=== PATIENT | female | born 1945 | race Caucasian/White ===

== ENCOUNTER 2019-11-13 20:32 | Inpatient (IN) | payer MEDICARE, OTHER ==
[~2019-11-13] VITALS: Ht 157.5 cm; Wt 68.3 kg
[~2019-11-13 20:32] MED LIST: ACEBUTCAFT PO; ALPRAZOLAM; AMOX500; BACL10 PO; Bupropion HCl150 M2 PO; CITA20; CITA20 PO; DIPATR PO; DONE10 PO; ESTROGEN; HYDACE5 PO; HYDROCODONE; LEVFLO500 PO; MELA3 PO; ONDA4 PO; Omeprazole20 M1 PO; PANT40 PO; PROM25 PO; PROP80ER PO; SULI150
[2019-11-13 21:27] LABS: BASOPHILS ABSOLUTE AUTO 0.04 K/mm3 (0.00-0.23); BASOPHILS PERCENT AUTO 0 % (0-2); EOSINOPHILS ABSOLUTE AUTO 0.01 K/mm3 (0.00-0.68); EOSINOPHILS PERCENT AUTO 0 % (0-6); Hematocrit 46.6 % (33.0-51.0); Hemoglobin 14.8 g/dL (11.5-16.0); IMMATURE GRAN ABSOLUTE AUTO 0.15 K/mm3 (0.00-0.10); IMMATURE GRAN PERCENT AUTO 1 % (0-1); LYMPHOCYTES ABSOLUTE AUTO 0.95 K/mm3 (0.84-5.20); LYMPHOCYTES PERCENT AUTO 5 % (21-46); MONOCYTES ABSOLUTE AUTO 1.56 K/mm3 (0.16-1.47); MONOCYTES PERCENT AUTO 9 % (4-13); Mean Corpuscular HGB 31.9 pg (26.0-34.0); Mean Corpuscular HGB Conc 31.8 g/dL (31.5-36.5); Mean Corpuscular Volume 100 fL (80-100); Mean Platelet Volume 11.1 fL (9.1-12.4); NEUTROPHILS ABSOLUTE AUTO 15.29 K/mm3 (1.96-9.15); NEUTROPHILS PERCENT AUTO 85 % (41-73); Platelet Count 268 K/mm3 (150-400); RDW Coefficient Variation 13.9 % (11.7-14.2); RDW Standard Deviation 51.8 fL (35.1-46.3); Red Blood Cell Count 4.64 M/mm3 (3.80-5.20)
[2019-11-13 21:47] LABS: Alanine Aminotransfer (ALT/SGP 21 U/L (12-78); Albumin, Blood 3.8 g/dL (3.4-5.0); Alk Phos 103 U/L (50-136); Anion Gap 9 mmol/L (6-16); Aspartate Aminotrans (AST/SGOT 18 U/L (12-37); Bilirubin, Total 0.5 mg/dL (0.1-1.0); Blood Urea Nitrogen 10 mg/dL (8-24); Bun/Creatinine Ratio 13.3 (12.0-20.0); CO2, Blood 26 mmol/L (21-32); Chloride, Blood 103 mmol/L (98-108); Creatinine, Blood 0.75 mg/dL (0.40-1.00); Ethanol (Alcohol), Blood, Med <3 mg/dL; Glomerular Filtration Rate >60 (60-); Glucose, Blood 253 mg/dL (70-99); Magnesium, Blood 1.9 mg/dL (1.6-2.4); Potassium, Blood 3.4 mmol/L (3.5-5.5); Sodium, Blood 138 mmol/L (136-145); Total Protein, Blood 7.8 g/dL (6.4-8.2); Troponin I 0.439 ng/mL (0.000-0.040)
[2019-11-13 22:03] LABS: Source, Urine Clean Catch
[2019-11-13 22:05] LABS: Bilirubin, Urine Neg (Neg); Blood, Urine 1+ (Neg); Glucose Qualitative, Urine 4+ (Neg); Ketones, Urine 3+ (Neg); Leukocyte Esterase, Urine 1+ (Neg); Nitrite, Urine Neg (Neg); Protein, Urine 1+ (Neg); Specific Gravity, Urine 1.015 (1.003-1.022); Urobilinogen, Urine NORM (Normal)
[2019-11-13 22:16] LABS: Amorphous Light (0-Heavy); Appearance, Urine Hazy (Clear); Bacteria Mod /hpf; Color, Urine Yellow (P-Yellow); Red Blood Cells, Urine 0-2 /hpf (0-2); Squamous Epithelial Cells Few /hpf (Few)
[2019-11-13] MEDS ORDERED: PARO30 PO (22:58)
[2019-11-13 23:48] LABS: International Normalized Ratio 1.05; Prothrombin Time Results 11.2 Sec (9.7-11.5)
--- NOTE | 2019-11-14 02:30 | NUR ---
ADMIT NOTE PATIENT ADMITTED EARLIER THIS SHIFT AND WAS SETTLED IN AND ORIENTED TO THE ROOM, CALL LIGHT, AND UNIT. PATIENT VERY ANXIOUS AND NAUSOUS UPON ADMIT TO THE FLOOR, PATIENT MEDICATED FOR BOTH PER EMAR. HOWEVER, PATIENT DENIES ANY CHEST PAIN BUT REPORTS FEELING GENERALLY UNCOMFORTABLE OVERALL. WILL CONTINUE TO MONITOR PATIENT.
[2019-11-14 06:17] LABS: BASOPHILS ABSOLUTE AUTO 0.03 K/mm3 (0.00-0.23); BASOPHILS PERCENT AUTO 0 % (0-2); EOSINOPHILS PERCENT AUTO 0 % (0-6); Hematocrit 44.8 % (33.0-51.0); Hemoglobin 14.8 g/dL (11.5-16.0); IMMATURE GRAN ABSOLUTE AUTO 0.05 K/mm3 (0.00-0.10); IMMATURE GRAN PERCENT AUTO 0 % (0-1); LYMPHOCYTES ABSOLUTE AUTO 0.83 K/mm3 (0.84-5.20); LYMPHOCYTES PERCENT AUTO 6 % (21-46); MONOCYTES ABSOLUTE AUTO 0.54 K/mm3 (0.16-1.47); MONOCYTES PERCENT AUTO 4 % (4-13); Mean Corpuscular HGB 32.4 pg (26.0-34.0); Mean Corpuscular Volume 98 fL (80-100); Mean Platelet Volume 11.4 fL (9.1-12.4); NEUTROPHILS ABSOLUTE AUTO 13.17 K/mm3 (1.96-9.15); NEUTROPHILS PERCENT AUTO 90 % (41-73); Platelet Count 252 K/mm3 (150-400); RDW Coefficient Variation 13.7 % (11.7-14.2); RDW Standard Deviation 49.7 fL (35.1-46.3); Red Blood Cell Count 4.57 M/mm3 (3.80-5.20); White Blood Cell Count 14.62 K/mm3 (4.00-11.30)
--- NOTE | 2019-11-14 06:42 | NUR ---
SHIFT SUMMARY PATIENT CONTINUES TO BE VERY ANXIOUS AND CONTINUES TO FEEL "UNCOMFORTABLE." PATIENT UNABLE TO EXPLAIN FEELING FURTHER.STATES SHE FEELS VERY NAUSOUS, MEDICATED FOR NAUSEA PER EMAR. PATIENT CONTINUES TO DENY ANY CHEST PAIN. DR AGUAYO UPDATED OF PATIENT'S CURRENT CONDITION, ORDERS RECIEVED. HEPARIN GTT RUNNING PER ORDERS. AM EKG DONE PER ORDERS. PATIENT CURRENTLY RESTING IN BED AND APPEARS TO BE MORE COMFORTABLE THAN BEFORE. WILL CONTINUE TO MONITOR PATIENT AND GIVE BEDSIDE REPORT TO ONCOMING RN.
[2019-11-14 07:15] LABS: Anion Gap 7 mmol/L (6-16); Blood Urea Nitrogen 8 mg/dL (8-24); Bun/Creatinine Ratio 11.2 (12.0-20.0); CO2, Blood 26 mmol/L (21-32); Calcium, Blood 8.4 mg/dL (8.5-10.1); Chloride, Blood 104 mmol/L (98-108); Creatinine, Blood 0.72 mg/dL (0.40-1.00); Glomerular Filtration Rate >60 (60-); Glucose, Blood 151 mg/dL (70-99); Potassium, Blood 4.6 mmol/L (3.5-5.5); Sodium, Blood 137 mmol/L (136-145)
--- NOTE | 2019-11-14 11:10 | NUR ---
AM...NOTE. PT IS LIGHTLY SLEEPING, AROUSABLE AND DENIES SOB OR ANY PAIN AT THIS TIME. HEPARIN GTT INITIALLY 13 UNITS AND PER ORDER INC TO 14U/KG AT 15.[address] BETANCOURT IN TO SEE AND ASSESS PT AND WILL EVALUATE ECHO AND DETERMINE NEED FOR FOLLOW UP CATH, ETC. PT WAS DOWN FOR ABD XRAY PER BED AND BACK W/O DISTRESS. PT HAS MILD ELEVATED TEMP, EXTRA BLANKETS AND ROOM TEMP ADJUSTED AND WILL RE-EVALUATE. UP TO MEGHA WITH MILD SOB, NO CHEST PAIN.
--- NOTE | 2019-11-14 14:24 | NUR ---
PT ECHO HAS BEEN COMPLETED AND READ. PT REMAINS W/O C.P. OR SOB AND WANTS TO "GO HOME". IV UNCHANGED PER HEPARIN GTT AT 14UNITS AND NS TKO.
--- NOTE | 2019-11-14 18:05 | NUR ---
ECHOCARDIOGRAM COMPLETE
--- NOTE | 2019-11-14 18:14 | NUR ---
HEPARIN GTT REMAINS STABLE AT 14UNITS PER ORDER. PT HAS BEEN DROWSY AND SLEEPING MOST OF THE SHIFT. THERE HAS BEEN NO C/O OR NOTED CHEST PAIN DURING THIS SHIFT. PT REMAINS NSR. NS TKO. PT HAS BEEN UP TO VOID. WILL REPORT NPO STATUS AFTER MIDNIGHT.
[2019-11-15 05:20] LABS: BASOPHILS ABSOLUTE AUTO 0.03 K/mm3 (0.00-0.23); BASOPHILS PERCENT AUTO 0 % (0-2); EOSINOPHILS PERCENT AUTO 0 % (0-6); Hematocrit 44.8 % (33.0-51.0); Hemoglobin 14.8 g/dL (11.5-16.0); IMMATURE GRAN ABSOLUTE AUTO 0.04 K/mm3 (0.00-0.10); IMMATURE GRAN PERCENT AUTO 0 % (0-1); LYMPHOCYTES ABSOLUTE AUTO 2.28 K/mm3 (0.84-5.20); LYMPHOCYTES PERCENT AUTO 22 % (21-46); MONOCYTES ABSOLUTE AUTO 1.24 K/mm3 (0.16-1.47); MONOCYTES PERCENT AUTO 12 % (4-13); Mean Corpuscular HGB 32.4 pg (26.0-34.0); Mean Corpuscular Volume 98 fL (80-100); Mean Platelet Volume 11.2 fL (9.1-12.4); NEUTROPHILS ABSOLUTE AUTO 6.95 K/mm3 (1.96-9.15); NEUTROPHILS PERCENT AUTO 66 % (41-73); Platelet Count 246 K/mm3 (150-400); RDW Standard Deviation 50.7 fL (35.1-46.3); Red Blood Cell Count 4.57 M/mm3 (3.80-5.20); White Blood Cell Count 10.54 K/mm3 (4.00-11.30)
[2019-11-15 05:45] LABS: Alanine Aminotransfer (ALT/SGP 19 U/L (12-78); Albumin, Blood 3.3 g/dL (3.4-5.0); Albumin/Globulin Ratio 0.8 (0.8-1.8); Alk Phos 88 U/L (50-136); Anion Gap 7 mmol/L (6-16); Aspartate Aminotrans (AST/SGOT 22 U/L (12-37); Bilirubin, Total 0.6 mg/dL (0.1-1.0); Blood Urea Nitrogen 9 mg/dL (8-24); Bun/Creatinine Ratio 9.4 (12.0-20.0); CO2, Blood 27 mmol/L (21-32); Calcium, Blood 8.6 mg/dL (8.5-10.1); Chloride, Blood 106 mmol/L (98-108); Creatinine, Blood 0.96 mg/dL (0.40-1.00); Globulin, Blood 3.9 g/dL (2.2-4.0); Glomerular Filtration Rate >60 (60-); Glucose, Blood 124 mg/dL (70-99); Potassium, Blood 3.3 mmol/L (3.5-5.5); Sodium, Blood 140 mmol/L (136-145); Total Protein, Blood 7.2 g/dL (6.4-8.2)
--- NOTE | 2019-11-15 07:11 | NUR ---
SHIFT SUMMARY PATIENT VERY SLEEPY FOR MOST OF THE NIGHT, HOWEVER PATIENT MORE AWAKE AND AND NAPPED ON AND OFF THROUGHOUT THE LAST PART OF THE NIGHT. PATIENT ANXIOUS WHEN AWAKE. PATIENT EDUCATED ON POSSIBLE ANGIO TODAY MULTIPLE TIMES BUT APPEARS VERY FORGETFUL. PATIENT UNSURE IF SHE WANTS TO HAVE THE PROCEDURE DONE TODAY. PATIENT HAS BEEN NPO SINCE 0000. HEPARIN GTT RUNNING PER ORDERS. BEDSIDE REPORT GIVEN TO GABBIE WALDEN.
--- NOTE | 2019-11-15 07:14 | NUR ---
ASSUMED PATIENT CARE. PATIENT RESTING COMFORTABLY IN BED, EQUAL BILATERAL CHEST RISE WITH BREATH. NO SIGNS OF ACUTE DISTRESS, WCTM.
--- NOTE | 2019-11-15 12:58 | NUR ---
REPORT GIVEN TO JOHANNA WALDEN IN PCU. RELINQUISHED PATIENT CARE.
--- NOTE | 2019-11-15 14:22 | NUR ---
HEPARIN GTT TITRATED PER PHARMACY. PTT= 42.8. GTT INCREASED BY 2 UNITS/KG/HR & 2500 UNIT BOLUS GIVEN. CHANGES VERIFIED W/ SECOND RNRADHA. HEPARIN GTT NOW INFUSING @ 17 UNITS/KG/HR. WILL CONTINUE TO MONITOR.
--- NOTE | 2019-11-15 14:33 | NUR ---
PT GAVE PERMISSION FOR CARE ON 11/15/19 FOR TOMORROW 11/16/19.
--- NOTE | 2019-11-15 17:36 | NUR ---
SHIFT SUMMARY ASSUMED PT CARE AROUND 1258 FROM IRAM ALBERTS. NO ACUTE CHANGES THROUGHOUT SHIFT. VSS. PT W/ LOW GRADE FEVER EARLIER TODAY; MOST RECENT TEMP 98.8. PLAN TO TREAT PT FOR PNA FIRST SINCE PT FEBRILE TODAY; ANGIOGRAM SCHEDULED TENTATIVELY FOR TOMORROW. HEPARIN GTT CONTINUES TO INFUSE, CURRENLTY RUNNING @ 17 UNITS/KG/HR. PT DENIED ANY C/O CHEST PAIN/PRESSURE OR SOB. PT ALERT & ORIENTED, BUT FREQUENTLY FORGETFUL; BED ALARM IN PLACE FOR PT SAFETY. PT RESTING COMFORTBALY IN BED AT THIS TIME. BED LOCKED & IN LOWEST POSITION, CALL JADE W/ IN REACH. WILL CONTINUE TO MONITOR UNTIL END OF SHIFT.
[2019-11-16 04:57] LABS: BASOPHILS ABSOLUTE AUTO 0.04 K/mm3 (0.00-0.23); BASOPHILS PERCENT AUTO 1 % (0-2); EOSINOPHILS ABSOLUTE AUTO 0.06 K/mm3 (0.00-0.68); EOSINOPHILS PERCENT AUTO 1 % (0-6); Hematocrit 41.8 % (33.0-51.0); Hemoglobin 13.8 g/dL (11.5-16.0); IMMATURE GRAN ABSOLUTE AUTO 0.03 K/mm3 (0.00-0.10); IMMATURE GRAN PERCENT AUTO 0 % (0-1); LYMPHOCYTES ABSOLUTE AUTO 3.45 K/mm3 (0.84-5.20); LYMPHOCYTES PERCENT AUTO 41 % (21-46); MONOCYTES ABSOLUTE AUTO 1.02 K/mm3 (0.16-1.47); MONOCYTES PERCENT AUTO 12 % (4-13); Mean Corpuscular HGB 32.5 pg (26.0-34.0); Mean Corpuscular Volume 98 fL (80-100); Mean Platelet Volume 11.4 fL (9.1-12.4); NEUTROPHILS ABSOLUTE AUTO 3.77 K/mm3 (1.96-9.15); NEUTROPHILS PERCENT AUTO 45 % (41-73); Platelet Count 237 K/mm3 (150-400); RDW Coefficient Variation 14.1 % (11.7-14.2); RDW Standard Deviation 51.2 fL (35.1-46.3); Red Blood Cell Count 4.25 M/mm3 (3.80-5.20); White Blood Cell Count 8.37 K/mm3 (4.00-11.30)
--- NOTE | 2019-11-16 05:30 | NUR ---
END OF SHIFT SUMMARY NO ACUTE CHANGES THIS SHIFT. VSS. REMAINS IN SR. PT DENIES CP. HEPARIN GTT CONTINUES TO INFUSE. NPO POST MIDNIGHT. PT HAS RESTED T/O THE SHIFT POST MELATONIN. PT EDUCATED ON PROCEEDINGS PRIOR/DURING/AFTER ANGIOGRAM. WILL CONTINUE O MONITOR UNTIL SHIFT CHANGE.
[2019-11-16 05:33] LABS: Albumin/Globulin Ratio 0.9 (0.8-1.8); Bilirubin, Total 0.5 mg/dL (0.1-1.0); Bun/Creatinine Ratio 18.7 (12.0-20.0); Calcium, Blood 8.7 mg/dL (8.5-10.1); Creatinine, Blood 1.07 mg/dL (0.40-1.00); Globulin, Blood 3.5 g/dL (2.2-4.0); Potassium, Blood 3.6 mmol/L (3.5-5.5); Total Protein, Blood 6.5 g/dL (6.4-8.2); Troponin I 0.137 ng/mL (0.000-0.040)
[2019-11-16 11:30] LABS: Adenovirus Not Detected (NOT DETECT); Bordetella pertussis Not Detected (NOT DETECT); Chlamydophila pneumoniae Not Detected (NOT DETECT); Coronavirus 229E Not Detected (NOT DETECT); Coronavirus HKU1 Not Detected (NOT DETECT); Coronavirus NL63 Not Detected (NOT DETECT); Coronavirus OC43 Not Detected (NOT DETECT); Human Metapneumovirus Not Detected (NOT DETECT); Human Rhinovirus/Enterovirus Not Detected (NOT DETECT); Influenza A/2009-H1 Not Detected (NOT DETECT); Influenza A/H1 Not Detected (NOT DETECT); Influenza A/H3 Not Detected (NOT DETECT); Influenza B Not Detected (NOT DETECT); Mycoplasma pneumoniae Not Detected (NOT DETECT); Parainfluenza Virus 1 Not Detected (NOT DETECT); Parainfluenza Virus 2 Not Detected (NOT DETECT); Parainfluenza Virus 3 Not Detected (NOT DETECT); Parainfluenza Virus 4 Not Detected (NOT DETECT); Respiratory Syncytial Virus Not Detected (NOT DETECT)
--- NOTE | 2019-11-16 19:27 | NUR ---
NURSING PCU DAYSHIFT SUMMARY: Seen by cardiology interventionalist this a.m., angiogram scheduled. Pt xferred to HC this a.m., angiogram completed w/no interventions required. Returned to room w/R radial site, recovered as per protocol, no bleed/hematoma noted, tegaderm in place and wrist board remains present. No s/s of acute distress t/o the shift, rpt provided to FRANCHESKA RN.
--- NOTE | 2019-11-16 22:33 | NUR ---
ASSUMED CARE OF PATIENT AT APPROXIMATELY 1910 FROM MOLLY Hayward RN. PATIENT ALERT AND ORIENTED X4; FORGETFUL AT TIMES; REMINDED MULTIPLE TIMES NOT TO USE RIGHT WRIST FOR PUSHING OR PULLING. PATIENT S/P ANGIO TODAY TO RIGHT RADIAL; SITE HAS SMALL AMOUNT RED BLOOD NOTED; NO S/S OF ACTIVE BLEEDING OR HEMATOMA. NSR ON TELE; OXYGEN SATURATION ABOVE 90% ON 1LPM VIA NC OR ROOM AIR. PATIENT ONE ASSIST TO BEDSIDE COMMODE; REPORTS FREQUENT BMS; FORMED. PIV S/L. PATIENT CURRENTLY RESTING IN BED; CALL LIGHT IN REACH; BED IN LOWEST POSISTION; BED ALARM ON; WILL CONTINUE TO MONITOR AND ASSESS UNTIL END OF SHIFT.
[2019-11-17 04:30] LABS: Mean Platelet Volume 11.6 fL (9.1-12.4); Platelet Count 211 K/mm3 (150-400)
--- NOTE | 2019-11-17 06:53 | NUR ---
PATIENT TITRATED TO ROOM AIR; VSS. NO OTHER ACUTE CHANGES TO REPORT. PATIENT SLEPT ABOUT EIGHT HOURS. WILL CONTINUE TO MONITOR AND ASSESS.
--- NOTE | 2019-11-17 09:15 | NUR ---
NURSING PCU DAYSHIFT: Assumed care of pt at approx 0700. Alert, oriented this a.m. though forgetful at times, bed alarm set for safety purposes. Skin is fragile, scattered bruising to UE's, no breakdown noted, R radial site which is stable w/no bleed/hematoma noted, wrist board in place. General weakness, ambulates w/one staff assist using FWW. Denies any pain/discomfort at rest. Tele in place, NSR, no c/o CP/pressure, SBP 120's, HR 60-70's, no noted edema. L/S cta t/o w/dim bases, no noted cough, denies dyspnea, O2 sat low 90's on RA. Abd SNT, BT+, voiding w/o difficulty. PIV x1, s/l. No s/s of acute distress at this time. Pt denies any current needs, hopeful for discharge home. Awaiting rounding from PMD, call light in reach, cont to monitor for any changes.
--- NOTE | 2019-11-17 12:25 | NUR ---
Spiritual care visit conducted. Patient tells me about her medical issues, her life at [facility] and about her family. Patient tells me that she has some confusion about what her medical plan is going forward but is sure that her doctor will clear it up when she comes to check on her. Patient also tells me personal information about her family and her own struggles. I listen empathically, normalize patient's experience and provide prayer. Patient responds well and shows signs of an elevated mood. I will continue to remain available to patient and family.
[2019-11-17] MEDS ORDERED: ACET325 PO (14:07)
[2019-11-17] MEDS ORDERED: ASPI81CH PO (14:08)
[2019-11-17] MEDS ORDERED: ATOR80 PO (14:09)
[2019-11-17] MEDS ORDERED: CEFU500T30 PO (14:10)
[2019-11-17] MEDS ORDERED: NITR.4SL SL (14:11)
[2019-11-17] MEDS ORDERED: METO25ER PO (14:11)
[2019-11-17] MEDS ORDERED: PARO30 PO (14:12)
--- NOTE | 2019-11-17 15:23 | NUR ---
DISCHARGE DISCHARGE INSTRUCTIONS PROVIDED. EDUCATION PROVIDED ON NEW MEDICAITONS. PT STATES HER SON WILL BE ABLE TO STAY THE NIGHT WITH HER DR. HICKS HAD SUGGESTED. IV REMOVED. ALL QUESTIONS ANSWERED. THIS RN CALLED THE PT'S SON TO LET HIM KNOW THAT SHE WILL BE DISCHARGED AND NEEDS A RIDE. SON IS ON HIS WAY TO PICK HER UP. PT TAKEN OUT BY WHEELCHAIR.
== END 2019-11-17 15:32 | disposition home or self-care (01) | DRG 280 ==
LOC: ER 20:32 → PCU 23:54 → ER 11-14 00:40 → PCU 11-14 00:40
PROVIDERS: Emergency Medicine; Internal Medicine; Nurse Practitioner Acute Care; ADMIT Internal Medicine
PROC: B215YZZ Fluoroscopy of Left Heart using Other Contrast (ICD-10-PCS; principal; 2019-11-16)
PROC: 4A023N7 Measurement of Cardiac Sampling and Pressure, Left Heart, Percutaneous Approach (ICD-10-PCS; 2019-11-16)
DX: I21.4 Non-ST elevation (NSTEMI) myocardial infarction (principal); J18.9 Pneumonia, unspecified organism; E87.6 Hypokalemia; F41.8 Other specified anxiety disorders; I10 Essential (primary) hypertension; I25.10 Atherosclerotic heart disease of native coronary artery without angina pectoris; Z87.891 Personal history of nicotine dependence; Z88.8 Allergy status to other drugs, medicaments and biological substances
CPT/HCPCS: 0099U; 36415; 71046; 71250; 74018; 76937; 80048; 80053; 81001; 82947; 83690; 83735; 83880; 84145; 84484; 85025; 85049; 85347; 85610; 85730; 87077; 87086; 87186; 93005; 93010; 93306; 93458; 94760; 94762; 96365; 96375; 99152; 99153; 99285-25; A9270-GY; C1769; C1894; G0480; J0456; J0696; J1644; J1650; J2060; J2250; J2405; J2765; J3010; J3480; J7030; J7050; Q9967

== ENCOUNTER 2021-09-14 15:01 | Emergency (ER) | payer MEDICARE, OTHER ==
[~2021-09-14 15:01] MED LIST changes: +ACET325 PO; +ASPI81CH PO; +ATOR80 PO; +CEFU500T30 PO; +METO25ER PO; +NITR.4SL SL; +PARO30 PO
== END 2021-09-14 16:18 | disposition left against medical advice (07) ==
LOC: ER 15:01
DX: Z53.21 Procedure and treatment not carried out due to patient leaving prior to being seen by health care provider (principal)

== ENCOUNTER 2022-02-02 23:01 | Emergency (ER) | payer OTHER, MEDICARE ==
[~2022-02-02] VITALS: Ht 157.5 cm; Wt 54.4 kg
== END 2022-02-03 00:15 | disposition home or self-care (01) ==
LOC: ER 23:01
DX: Z04.1 Encounter for examination and observation following transport accident (principal); Z88.5 Allergy status to narcotic agent; Z79.899 Other long term (current) drug therapy; Z87.891 Personal history of nicotine dependence
CPT/HCPCS: 99284

== ENCOUNTER 2022-04-16 12:38 | Emergency (ER) | payer OTHER, MEDICARE ==
[~2022-04-16] VITALS: Ht 157.5 cm; Wt 61.2 kg
[2022-04-16 14:09] LABS: BASOPHILS ABSOLUTE AUTO 0.05 K/mm3 (0.00-0.23); BASOPHILS PERCENT AUTO 1 % (0-2); EOSINOPHILS ABSOLUTE AUTO 0.05 K/mm3 (0.00-0.68); EOSINOPHILS PERCENT AUTO 1 % (0-6); Hematocrit 44.9 % (33.0-51.0); Hemoglobin 14.7 g/dL (11.5-16.0); IMMATURE GRAN ABSOLUTE AUTO 0.02 K/mm3 (0.00-0.10); IMMATURE GRAN PERCENT AUTO 0 % (0-1); LYMPHOCYTES ABSOLUTE AUTO 2.09 K/mm3 (0.84-5.20); LYMPHOCYTES PERCENT AUTO 26 % (21-46); MONOCYTES PERCENT AUTO 13 % (4-13); Mean Corpuscular HGB 31.1 pg (26.0-34.0); Mean Corpuscular HGB Conc 32.7 g/dL (31.5-36.5); Mean Corpuscular Volume 95 fL (80-100); Mean Platelet Volume 11.3 fL (9.1-12.4); NEUTROPHILS PERCENT AUTO 60 % (41-73); Platelet Count 239 K/mm3 (150-400); RDW Coefficient Variation 13.5 % (11.7-14.2); RDW Standard Deviation 47.5 fL (35.1-46.3); Red Blood Cell Count 4.72 M/mm3 (3.80-5.20); White Blood Cell Count 7.91 K/mm3 (4.00-11.30)
[2022-04-16 14:35] LABS: Albumin, Blood 3.3 g/dL (3.4-5.0); Albumin/Globulin Ratio 0.9 (0.8-1.8); Bilirubin, Total 1.5 mg/dL (0.1-1.0); Bun/Creatinine Ratio 15.3 (12.0-20.0); Calcium, Blood 8.6 mg/dL (8.5-10.1); Creatinine, Blood 0.85 mg/dL (0.40-1.00); Globulin, Blood 3.8 g/dL (2.2-4.0); Potassium, Blood 3.7 mmol/L (3.5-5.5); Total Protein, Blood 7.1 g/dL (6.4-8.2)
[2022-04-16 17:39] LABS: Source, Urine Straight Cath
[2022-04-16 17:42] LABS: Appearance, Urine Clear (Clear); Bilirubin, Urine Neg (Neg); Blood, Urine Neg (Neg); Color, Urine Yellow (P-Yellow); Glucose Qualitative, Urine Neg (Neg); Ketones, Urine Neg (Neg); Leukocyte Esterase, Urine Neg (Neg); Nitrite, Urine Neg (Neg); Protein, Urine Neg (Neg); Specific Gravity, Urine 1.025 (1.003-1.022); Urobilinogen, Urine NORM (Normal)
[2022-04-16] MEDS ORDERED: CEPH500 PO (17:43)
== END 2022-04-16 18:29 | disposition home or self-care (01) ==
LOC: ER 12:38
PROVIDERS: Emergency Medicine; Student in an Organized Health Care Education/Training Program
DX: N39.0 Urinary tract infection, site not specified (principal); Z79.82 Long term (current) use of aspirin; Z79.899 Other long term (current) drug therapy; Z87.891 Personal history of nicotine dependence
CPT/HCPCS: 36415; 80053; 81003; 85025; A9270; P9612

== ENCOUNTER 2022-04-21 10:19 | Emergency (ER) | payer MEDICARE, OTHER ==
[~2022-04-21] VITALS: Ht 157.5 cm; Wt 68.0 kg
[~2022-04-21 10:19] MED LIST changes: +CEPH500 PO
[2022-04-21 11:28] LABS: Source, Urine Straight Cath
[2022-04-21 11:32] LABS: Appearance, Urine Clear (Clear); Bilirubin, Urine Neg (Neg); Blood, Urine 1+ (Neg); Color, Urine Yellow (P-Yellow); Glucose Qualitative, Urine Neg (Neg); Ketones, Urine 3+ (Neg); Leukocyte Esterase, Urine Neg (Neg); Nitrite, Urine Neg (Neg); Protein, Urine Neg (Neg); Specific Gravity, Urine 1.025 (1.003-1.022); Urobilinogen, Urine NORM (Normal)
[2022-04-21 11:34] LABS: BASOPHILS ABSOLUTE AUTO 0.03 K/mm3 (0.00-0.23); BASOPHILS PERCENT AUTO 0 % (0-2); EOSINOPHILS PERCENT AUTO 0 % (0-6); Hematocrit 44.2 % (33.0-51.0); Hemoglobin 14.4 g/dL (11.5-16.0); IMMATURE GRAN ABSOLUTE AUTO 0.06 K/mm3 (0.00-0.10); IMMATURE GRAN PERCENT AUTO 0 % (0-1); LYMPHOCYTES ABSOLUTE AUTO 1.08 K/mm3 (0.84-5.20); LYMPHOCYTES PERCENT AUTO 8 % (21-46); MONOCYTES PERCENT AUTO 8 % (4-13); Mean Corpuscular HGB 31.1 pg (26.0-34.0); Mean Corpuscular HGB Conc 32.6 g/dL (31.5-36.5); Mean Corpuscular Volume 96 fL (80-100); Mean Platelet Volume 11.5 fL (9.1-12.4); NEUTROPHILS ABSOLUTE AUTO 12.04 K/mm3 (1.96-9.15); NEUTROPHILS PERCENT AUTO 84 % (41-73); Platelet Count 259 K/mm3 (150-400); RDW Coefficient Variation 13.4 % (11.7-14.2); RDW Standard Deviation 47.7 fL (35.1-46.3); Red Blood Cell Count 4.63 M/mm3 (3.80-5.20); White Blood Cell Count 14.31 K/mm3 (4.00-11.30)
[2022-04-21] MEDS ORDERED: BACL10 PO (11:35)
[2022-04-21] MEDS ORDERED: MELATONIN5 M1 PO (11:37)
[2022-04-21] MEDS ORDERED: LOMOTIL 2.5-0.1 EACH PO (11:38)
[2022-04-21 11:55] LABS: Bacteria Rare /hpf; Red Blood Cells, Urine 0-2 /hpf (0-2); Squamous Epithelial Cells Few /hpf (Few); White Blood Cells, Urine 0-2 /hpf (0-5)
[2022-04-21 11:56] LABS: Hyaline Casts 0-2 /lpf (0-2)
[2022-04-21 12:11] LABS: Alanine Aminotransfer (ALT/SGP 24 U/L (12-78); Albumin, Blood 3.3 g/dL (3.4-5.0); Albumin/Globulin Ratio 0.9 (0.8-1.8); Alk Phos 80 U/L (50-136); Anion Gap 8 mmol/L (6-16); Aspartate Aminotrans (AST/SGOT 43 U/L (12-37); Bilirubin, Total 0.9 mg/dL (0.1-1.0); Blood Urea Nitrogen 16 mg/dL (8-24); Bun/Creatinine Ratio 21.6 (12.0-20.0); CO2, Blood 29 mmol/L (21-32); Calcium, Blood 8.9 mg/dL (8.5-10.1); Chloride, Blood 107 mmol/L (98-108); Creatinine, Blood 0.74 mg/dL (0.40-1.00); Ethanol (Alcohol), Blood, Med <3 mg/dL; Globulin, Blood 3.8 g/dL (2.2-4.0); Glomerular Filtration Rate 83 (60-); Glucose, Blood 126 mg/dL (70-99); Potassium, Blood 4.1 mmol/L (3.5-5.5); Sodium, Blood 144 mmol/L (136-145); Total Protein, Blood 7.1 g/dL (6.4-8.2)
[2022-04-21 12:14] LABS: U Amphetamine Screen Not Detected; U Barbituate Screen Not Detected; U Benzodiazapine Screen Not Detected; U Buprenorphine Screen Not Detected; U Cannabinoids Screen Not Detected; U Cocaine Screen Not Detected; U Methadone Screen Not Detected; U Methamphetamine Screen Not Detected; U Opiates Screen Not Detected; U Oxycodone Screen Not Detected; U Phencyclidine Screen Not Detected; U Propoxyphene Screen Not Detected
== END 2022-04-21 14:04 | disposition home or self-care (01) ==
LOC: ER 10:19
PROVIDERS: Emergency Medicine
DX: R41.0 Disorientation, unspecified (principal); M54.9 Dorsalgia, unspecified; G30.9 Alzheimer's disease, unspecified; F02.80 Dementia in other diseases classified elsewhere, unspecified severity, without behavioral disturbance, psychotic disturbance, mood disturbance, and anxiety; Z88.5 Allergy status to narcotic agent; Z79.899 Other long term (current) drug therapy; Z79.82 Long term (current) use of aspirin; Z87.891 Personal history of nicotine dependence; Z87.440 Personal history of urinary (tract) infections
CPT/HCPCS: 36415; 70450; 72100; 72170; 80053; 81001; 82140; 82947; 84443; 85025; 93005; 93010; G0480; P9612

== ENCOUNTER 2022-04-23 17:21 | Emergency (ER) | payer MEDICARE, OTHER ==
[~2022-04-23] VITALS: Ht 157.5 cm; Wt 57.6 kg
[~2022-04-23 17:21] MED LIST changes: +LOMOTIL 2.5-0.1 EACH PO; +MELATONIN5 M1 PO
== END 2022-04-23 20:56 | disposition home or self-care (01) ==
LOC: ER 17:21
DX: G30.9 Alzheimer's disease, unspecified (principal); F02.80 Dementia in other diseases classified elsewhere, unspecified severity, without behavioral disturbance, psychotic disturbance, mood disturbance, and anxiety; R45.1 Restlessness and agitation; R53.1 Weakness; Z91.81 History of falling; Z88.5 Allergy status to narcotic agent; Z79.899 Other long term (current) drug therapy; Z79.82 Long term (current) use of aspirin
CPT/HCPCS: 36415; 93005; 93010; 99285-25

== ENCOUNTER 2022-05-21 16:39 | Emergency (ER) | payer MEDICARE, OTHER ==
[~2022-05-21] VITALS: Ht 157.5 cm; Wt 59.0 kg
[2022-05-21] MEDS ORDERED: OLAN5 PO (19:42)
[2022-05-21] MEDS ORDERED: OLAN10 PO (19:42)
== END 2022-05-21 20:55 | disposition home or self-care (01) ==
LOC: ER 16:39
DX: F03.90 Unspecified dementia, unspecified severity, without behavioral disturbance, psychotic disturbance, mood disturbance, and anxiety (principal); F91.1 Conduct disorder, childhood-onset type; Z88.5 Allergy status to narcotic agent; Z79.899 Other long term (current) drug therapy; Z79.82 Long term (current) use of aspirin; Z87.891 Personal history of nicotine dependence
CPT/HCPCS: A9270

== ENCOUNTER → 2022-05-23 | Outpatient (CLI) | payer MEDICARE, OTHER ==
[~2022-05-23] MED LIST changes: +OLAN10 PO; +OLAN5 PO
[2022-05-23 15:13] LABS: Source, Urine Clean Catch
[2022-05-23 16:23] LABS: Bilirubin, Urine Neg (Neg); Blood, Urine Neg (Neg); Color, Urine Yellow (P-Yellow); Glucose Qualitative, Urine Neg (Neg); Ketones, Urine Neg (Neg); Leukocyte Esterase, Urine Neg (Neg); Nitrite, Urine Neg (Neg); Protein, Urine Neg (Neg); Specific Gravity, Urine 1.015 (1.003-1.022); Urobilinogen, Urine NORM (Normal)
[2022-05-23 16:44] LABS: Appearance, Urine Hazy (Clear)
[2022-05-23 16:45] LABS: Granular Casts 0-2 /lpf (0); Hyaline Casts 0-2 /lpf (0-2)
[2022-05-23 16:46] LABS: Amorphous Light (0-Heavy); Bacteria Mod /hpf; Mucus Light (0-Heavy); Red Blood Cells, Urine 0-2 /hpf (0-2); Squamous Epithelial Cells Mod /hpf (Few); White Blood Cells, Urine 0-2 /hpf (0-5)
== END | disposition home or self-care (01) ==
LOC: LAB 14:15 → LAB SHORT 14:15
PROVIDERS: Family Medicine
DX: N39.0 Urinary tract infection, site not specified (principal)
CPT/HCPCS: 81001; 87086

== ENCOUNTER 2022-06-23 20:00 | Emergency (ER) | payer MEDICARE, OTHER ==
[~2022-06-23] VITALS: Ht 157.5 cm; Wt 59.0 kg
[2022-06-23] MEDS ORDERED: ABILIFY MYCITE20 M2 PO (20:31)
[2022-06-23] MEDS ORDERED: MELO7.5 PO (20:33)
[2022-06-23] MEDS ORDERED: Bentyl20 MG PO (20:33)
[2022-06-23] MEDS ORDERED: Naltrexone HCl50 MG PO (20:34)
[2022-06-23 21:05] LABS: Influenza A, PCR NEGATIVE (NEGATIVE); Influenza B, PCR NEGATIVE (NEGATIVE); Resp Syncytial Virus, PCR NEGATIVE (NEGATIVE); SARS-Cov-2 (COVID-19) PCR, MMC NEGATIVE (NEGATIVE)
[2022-06-23] MEDS ORDERED: BENZ100A PO (21:32)
== END 2022-06-23 22:24 | disposition home or self-care (01) ==
LOC: ER 20:00
PROVIDERS: Emergency Medicine
DX: J20.9 Acute bronchitis, unspecified (principal); Z88.5 Allergy status to narcotic agent; Z79.899 Other long term (current) drug therapy; Z87.891 Personal history of nicotine dependence; Z20.822 Contact with and (suspected) exposure to COVID-19
CPT/HCPCS: 0241U; 71045; 94640; 94664; 99284-25; A9270

== ENCOUNTER → 2022-07-09 | Outpatient (CLI) | payer MEDICARE, OTHER ==
[~2022-07-09] MED LIST changes: +ABILIFY MYCITE20 M2 PO; +BENZ100A PO; +Bentyl20 MG PO; +MELO7.5 PO; +Naltrexone HCl50 MG PO
[2022-07-09 10:23] LABS: Source, Urine Clean Catch
[2022-07-09 10:53] LABS: Appearance, Urine Hazy (Clear); Bilirubin, Urine Neg (Neg); Blood, Urine 1+ (Neg); Color, Urine Yellow (P-Yellow); Glucose Qualitative, Urine Neg (Neg); Ketones, Urine Neg (Neg); Leukocyte Esterase, Urine 3+ (Neg); Nitrite, Urine Neg (Neg); Protein, Urine 1+ (Neg); Specific Gravity, Urine 1.015 (1.003-1.022); Urobilinogen, Urine NORM (Normal)
[2022-07-09 11:19] LABS: Hyaline Casts 0-2 /lpf (0-2); Red Blood Cells, Urine 0-2 /hpf (0-2); Squamous Epithelial Cells Mod /hpf (Few); White Blood Cells, Urine 25-50 /hpf (0-5)
[2022-07-09 11:20] LABS: Amorphous Light (0-Heavy); Bacteria Mod /hpf; Mucus Light (0-Heavy)
== END ==
LOC: LAB 09:00 → LAB SHORT 09:00
PROVIDERS: Family Medicine
DX: N39.0 Urinary tract infection, site not specified (principal)
CPT/HCPCS: 81001; 87086

== ENCOUNTER 2022-08-19 14:01 | Emergency (ER) | payer MEDICARE, OTHER ==
[~2022-08-19] VITALS: Ht 157.5 cm; Wt 54.4 kg
[2022-08-19 18:29] LABS: Source, Urine Straight Cath
[2022-08-19 18:34] LABS: BASOPHILS ABSOLUTE AUTO 0.03 K/mm3 (0.00-0.23); BASOPHILS PERCENT AUTO 0 % (0-2); EOSINOPHILS ABSOLUTE AUTO 0.01 K/mm3 (0.00-0.68); EOSINOPHILS PERCENT AUTO 0 % (0-6); Hemoglobin 12.9 g/dL (11.5-16.0); IMMATURE GRAN ABSOLUTE AUTO 0.08 K/mm3 (0.00-0.10); IMMATURE GRAN PERCENT AUTO 1 % (0-1); LYMPHOCYTES ABSOLUTE AUTO 0.85 K/mm3 (0.84-5.20); LYMPHOCYTES PERCENT AUTO 9 % (21-46); MONOCYTES ABSOLUTE AUTO 1.41 K/mm3 (0.16-1.47); MONOCYTES PERCENT AUTO 14 % (4-13); Mean Corpuscular HGB 30.9 pg (26.0-34.0); Mean Corpuscular HGB Conc 33.9 g/dL (31.5-36.5); Mean Corpuscular Volume 91 fL (80-100); Mean Platelet Volume 11.3 fL (9.1-12.4); NEUTROPHILS PERCENT AUTO 76 % (41-73); Platelet Count 279 K/mm3 (150-400); RDW Coefficient Variation 14.1 % (11.7-14.2); RDW Standard Deviation 47.1 fL (35.1-46.3); Red Blood Cell Count 4.18 M/mm3 (3.80-5.20); White Blood Cell Count 9.98 K/mm3 (4.00-11.30)
[2022-08-19 18:35] LABS: Appearance, Urine Hazy (Clear); Bilirubin, Urine Neg (Neg); Blood, Urine 2+ (Neg); Color, Urine Yellow (P-Yellow); Glucose Qualitative, Urine 2+ (Neg); Ketones, Urine Neg (Neg); Leukocyte Esterase, Urine 3+ (Neg); Nitrite, Urine Neg (Neg); Protein, Urine 1+ (Neg); Urobilinogen, Urine NORM (Normal)
[2022-08-19 18:48] LABS: Bacteria Many /hpf; Red Blood Cells, Urine 0-2 /hpf (0-2); Squamous Epithelial Cells Rare /hpf (Few)
[2022-08-19 18:51] LABS: Albumin, Blood 2.8 g/dL (3.4-5.0); Albumin/Globulin Ratio 0.7 (0.8-1.8); Bilirubin, Total 0.3 mg/dL (0.1-1.0); Bun/Creatinine Ratio 12.4 (12.0-20.0); Creatinine, Blood 0.89 mg/dL (0.40-1.00); Globulin, Blood 4.3 g/dL (2.2-4.0); Potassium, Blood 3.5 mmol/L (3.5-5.5); Total Protein, Blood 7.1 g/dL (6.4-8.2)
[2022-08-19 19:23] LABS: Influenza B, PCR NEGATIVE (NEGATIVE); Resp Syncytial Virus, PCR NEGATIVE (NEGATIVE); SARS-Cov-2 (COVID-19) PCR, MMC NEGATIVE (NEGATIVE)
[2022-08-19 19:24] LABS: Influenza A, PCR POSITIVE (NEGATIVE)
[2022-08-19] MEDS ORDERED: CEFD300 PO (20:33)
== END 2022-08-19 21:33 | disposition home or self-care (01) ==
LOC: ER 14:01
PROVIDERS: Emergency Medicine
DX: J10.1 Influenza due to other identified influenza virus with other respiratory manifestations (principal); F03.90 Unspecified dementia, unspecified severity, without behavioral disturbance, psychotic disturbance, mood disturbance, and anxiety; Z88.5 Allergy status to narcotic agent; Z88.8 Allergy status to other drugs, medicaments and biological substances; Z79.899 Other long term (current) drug therapy; Z87.891 Personal history of nicotine dependence; Z20.822 Contact with and (suspected) exposure to COVID-19
CPT/HCPCS: 0241U; 36415; 71045; 74177; 80053; 81001; 83880; 84484; 85025; 87086; 93005; 93010; 99285-25; A9270; J7030; Q9967

== ENCOUNTER → 2022-11-28 | Outpatient (CLI) | payer MEDICARE, OTHER ==
[~2022-11-28] MED LIST changes: +CEFD300 PO
[2022-11-28 15:00] LABS: Source, Urine Clean Catch
[2022-11-28 16:59] LABS: Appearance, Urine Cloudy (Clear); Bilirubin, Urine Neg (Neg); Blood, Urine 3+ (Neg); Color, Urine Yellow (P-Yellow); Glucose Qualitative, Urine Neg (Neg); Ketones, Urine Neg (Neg); Leukocyte Esterase, Urine 3+ (Neg); Nitrite, Urine Neg (Neg); Protein, Urine 2+ (Neg); Specific Gravity, Urine 1.025 (1.003-1.022); Urobilinogen, Urine NORM (Normal)
[2022-11-28 18:16] LABS: Amorphous Light (0-Heavy); Bacteria Many /hpf; Squamous Epithelial Cells Many /hpf (Few); White Blood Cells, Urine TNTC /hpf (0-5)
== END | disposition home or self-care (01) ==
LOC: LAB SHORT 13:40 → LAB FUT 04-22 18:30
PROVIDERS: Family Medicine
DX: N39.0 Urinary tract infection, site not specified (principal)
CPT/HCPCS: 81001; 87086

== ENCOUNTER 2023-06-22 16:47 | Emergency (ER) | payer MEDICARE, OTHER ==
[~2023-06-22] VITALS: Ht 167.6 cm; Wt 65.8 kg
[2023-06-22 17:28] LABS: BASOPHILS ABSOLUTE AUTO 0.07 K/mm3 (0.00-0.23); BASOPHILS PERCENT AUTO 1 % (0-2); EOSINOPHILS ABSOLUTE AUTO 0.13 K/mm3 (0.00-0.68); EOSINOPHILS PERCENT AUTO 1 % (0-6); Hematocrit 39.5 % (33.0-51.0); IMMATURE GRAN ABSOLUTE AUTO 0.17 K/mm3 (0.00-0.10); IMMATURE GRAN PERCENT AUTO 1 % (0-1); LYMPHOCYTES PERCENT AUTO 34 % (21-46); MONOCYTES ABSOLUTE AUTO 0.96 K/mm3 (0.16-1.47); MONOCYTES PERCENT AUTO 8 % (4-13); Mean Corpuscular HGB 30.7 pg (26.0-34.0); Mean Corpuscular HGB Conc 32.9 g/dL (31.5-36.5); Mean Corpuscular Volume 93 fL (80-100); Mean Platelet Volume 11.7 fL (9.1-12.4); NEUTROPHILS ABSOLUTE AUTO 6.77 K/mm3 (1.96-9.15); NEUTROPHILS PERCENT AUTO 55 % (41-73); Platelet Count 243 K/mm3 (150-400); RDW Coefficient Variation 13.8 % (11.7-14.2); RDW Standard Deviation 47.3 fL (35.1-46.3); Red Blood Cell Count 4.23 M/mm3 (3.80-5.20)
[2023-06-22 17:43] LABS: Albumin, Blood 3.2 g/dL (3.4-5.0); Albumin/Globulin Ratio 0.8 (0.8-1.8); Bilirubin, Total 0.4 mg/dL (0.1-1.0); Bun/Creatinine Ratio 18.5 (12.0-20.0); Creatinine, Blood 0.76 mg/dL (0.40-1.00); Globulin, Blood 4.2 g/dL (2.2-4.0); Potassium, Blood 3.7 mmol/L (3.5-5.5); Total Protein, Blood 7.4 g/dL (6.4-8.2)
[2023-06-22] MEDS ORDERED: ONDA4ODT MM (18:02)
[2023-06-22 19:30] VITALS: BP 138/62
== END 2023-06-22 20:06 | disposition home or self-care (01) ==
LOC: ER 16:47
PROVIDERS: Emergency Medicine
DX: R11.2 Nausea with vomiting, unspecified (principal); Z88.8 Allergy status to other drugs, medicaments and biological substances; Z88.5 Allergy status to narcotic agent; Z79.899 Other long term (current) drug therapy; Z87.891 Personal history of nicotine dependence
CPT/HCPCS: 80053; 85025; 96374; 99283-25; J2405

== ENCOUNTER → 2023-06-24 | Outpatient (CLI) | payer MEDICARE, OTHER ==
[~2023-06-24] MED LIST changes: +ONDA4ODT MM
[2023-06-24 16:08] LABS: Source, Urine Voided
[2023-06-24 18:35] LABS: Appearance, Urine Cloudy (Clear); Bilirubin, Urine Neg (Neg); Blood, Urine 2+ (Neg); Color, Urine Yellow (P-Yellow); Glucose Qualitative, Urine Neg (Neg); Ketones, Urine Neg (Neg); Leukocyte Esterase, Urine 3+ (Neg); Nitrite, Urine Neg (Neg); Protein, Urine 1+ (Neg); Specific Gravity, Urine 1.025 (1.003-1.022); Urobilinogen, Urine NORM (Normal)
[2023-06-24 20:25] LABS: Bacteria Many /hpf; Squamous Epithelial Cells Many /hpf (Few); White Blood Cells, Urine 25-50 /hpf (0-5)
[2023-06-24 20:28] LABS: Amorphous Light (0-Heavy); Calcium Oxalate Crystals Many /hpf; Hyaline Casts 0-2 /lpf (0-2); Mucus Mod (0-Heavy)
== END ==
LOC: LAB 16:02 → LAB SHORT 16:02
PROVIDERS: Family Medicine
DX: N39.0 Urinary tract infection, site not specified (principal)
CPT/HCPCS: 81001; 87086

== ENCOUNTER 2023-09-05 14:13 | Emergency (ER) | payer MEDICARE, OTHER ==
[~2023-09-05] VITALS: Ht 157.5 cm; Wt 56.7 kg
[2023-09-05] MEDS ORDERED: TRIA15CR3 TOP (14:28)
[2023-09-05] MEDS ORDERED: Ventolin/Prove6.7 GM INH (14:30)
[2023-09-05] MEDS ORDERED: DULCOLAX400 MG/5 M PO (14:32)
[2023-09-05] MEDS ORDERED: GUAI600T33 PO (14:34)
[2023-09-05] MEDS ORDERED: LOPE2C PO (14:35)
[2023-09-05] MEDS ORDERED: NYSTATIN-TRIAMC15 GM TOP (14:36)
[2023-09-05] MEDS ORDERED: RISP.5 PO (14:36)
[2023-09-05 15:30] VITALS: BP 154/84
== END 2023-09-05 16:34 | disposition home or self-care (01) ==
LOC: ER 14:13
DX: S00.03XA Contusion of scalp, initial encounter (principal); W18.30XA Fall on same level, unspecified, initial encounter; Z88.8 Allergy status to other drugs, medicaments and biological substances; Z88.5 Allergy status to narcotic agent; Z79.899 Other long term (current) drug therapy
CPT/HCPCS: 99283

== ENCOUNTER 2024-11-21 17:44 | Emergency (ER) | payer MEDICARE, OTHER ==
[~2024-11-21] VITALS: Ht 165.1 cm; Wt 63.5 kg
[~2024-11-21 17:44] MED LIST changes: +DULCOLAX400 MG/5 M PO; +GUAI600T33 PO; +LOPE2C PO; +NYSTATIN-TRIAMC15 GM TOP; +RISP.5 PO; +TRIA15CR3 TOP; +Ventolin/Prove6.7 GM INH
[2024-11-21] MEDS ORDERED: NS 1,000 ML IV SCH (19:15)
[2024-11-21 19:29] LABS: BASOPHILS ABSOLUTE AUTO 0.03 K/mm3 (0.00-0.23); BASOPHILS PERCENT AUTO 0 % (0-2); EOSINOPHILS ABSOLUTE AUTO 0.04 K/mm3 (0.00-0.68); EOSINOPHILS PERCENT AUTO 0 % (0-6); Hematocrit 42.4 % (33.0-51.0); Hemoglobin 14.2 g/dL (11.5-16.0); IMMATURE GRAN ABSOLUTE AUTO 0.02 K/mm3 (0.00-0.10); IMMATURE GRAN PERCENT AUTO 0 % (0-1); LYMPHOCYTES PERCENT AUTO 19 % (21-46); MONOCYTES ABSOLUTE AUTO 1.07 K/mm3 (0.16-1.47); MONOCYTES PERCENT AUTO 10 % (4-13); Mean Corpuscular HGB 31.8 pg (26.0-34.0); Mean Corpuscular HGB Conc 33.5 g/dL (31.5-36.5); Mean Corpuscular Volume 95 fL (80-100); Mean Platelet Volume 11.2 fL (9.1-12.4); NEUTROPHILS ABSOLUTE AUTO 7.39 K/mm3 (1.96-9.15); NEUTROPHILS PERCENT AUTO 70 % (41-73); Platelet Count 268 K/mm3 (150-400); Red Blood Cell Count 4.46 M/mm3 (3.80-5.20); White Blood Cell Count 10.55 K/mm3 (4.00-11.30)
[2024-11-21 19:42] VITALS: BP 135/66
[2024-11-21 19:49] LABS: Albumin, Blood 3.3 g/dL (3.4-5.0); Albumin/Globulin Ratio 0.8 (0.8-1.8); Bilirubin, Total 0.6 mg/dL (0.1-1.0); Bun/Creatinine Ratio 27.4 (12.0-20.0); Calcium, Blood 9.4 mg/dL (8.5-10.1); Creatinine, Blood 0.66 mg/dL (0.40-1.00); Globulin, Blood 4.1 g/dL (2.2-4.0); Potassium, Blood 4.2 mmol/L (3.5-5.5); Total Protein, Blood 7.4 g/dL (6.4-8.2)
== END 2024-11-22 03:00 | disposition home or self-care (01) ==
LOC: ER 17:44
PROVIDERS: Student in an Organized Health Care Education/Training Program
DX: S01.81XA Laceration without foreign body of other part of head, initial encounter (principal); G30.9 Alzheimer's disease, unspecified; F02.80 Dementia in other diseases classified elsewhere, unspecified severity, without behavioral disturbance, psychotic disturbance, mood disturbance, and anxiety; M24.542 Contracture, left hand; M24.541 Contracture, right hand; G43.009 Migraine without aura, not intractable, without status migrainosus; I10 Essential (primary) hypertension; I25.10 Atherosclerotic heart disease of native coronary artery without angina pectoris; I25.2 Old myocardial infarction; K21.9 Gastro-esophageal reflux disease without esophagitis; K58.9 Irritable bowel syndrome, unspecified; Z87.891 Personal history of nicotine dependence; Z88.5 Allergy status to narcotic agent; Z88.8 Allergy status to other drugs, medicaments and biological substances; Z79.1 Long term (current) use of non-steroidal anti-inflammatories (NSAID); Z79.899 Other long term (current) drug therapy; Z59.89 Other problems related to housing and economic circumstances; W18.39XA Other fall on same level, initial encounter
CPT/HCPCS: 70450; 72125; 80053; 84484; 85025; 93005; 93010; 99284-25; J7030

== ENCOUNTER 2025-04-19 09:21 | Emergency (ER) | payer MEDICARE, OTHER ==
[~2025-04-19] VITALS: Ht 152.4 cm; Wt 52.2 kg
[2025-04-19 12:13] LABS: BASOPHILS ABSOLUTE AUTO 0.08 K/mm3 (0.00-0.23); BASOPHILS PERCENT AUTO 1 % (0-2); EOSINOPHILS ABSOLUTE AUTO 0.59 K/mm3 (0.00-0.68); EOSINOPHILS PERCENT AUTO 6 % (0-6); Hematocrit 43.7 % (33.0-51.0); Hemoglobin 14.5 g/dL (11.5-16.0); IMMATURE GRAN ABSOLUTE AUTO 0.04 K/mm3 (0.00-0.10); IMMATURE GRAN PERCENT AUTO 0 % (0-1); LYMPHOCYTES ABSOLUTE AUTO 3.01 K/mm3 (0.84-5.20); LYMPHOCYTES PERCENT AUTO 30 % (21-46); MONOCYTES ABSOLUTE AUTO 1.04 K/mm3 (0.16-1.47); MONOCYTES PERCENT AUTO 11 % (4-13); Mean Corpuscular HGB Conc 33.2 g/dL (31.5-36.5); Mean Corpuscular Volume 93 fL (80-100); NEUTROPHILS ABSOLUTE AUTO 5.14 K/mm3 (1.96-9.15); NEUTROPHILS PERCENT AUTO 52 % (41-73); NRBC ABSOLUTE 0.00 K/mm3 (0.00-0.02); NRBC Auto 0.0 /100 WBC (0.0-0.2); Platelet Count 191 K/mm3 (150-400); RDW Coefficient Variation 13.4 % (11.7-14.2); RDW Standard Deviation 45.7 fL (35.1-46.3)
[2025-04-19 12:37] LABS: Alanine Aminotransfer (ALT/SGP 19.0 U/L (12-78); Albumin, Blood 2.8 g/dL (3.4-5.0); Albumin/Globulin Ratio 0.6 (0.8-1.8); Anion Gap 9.0 mmol/L (3-11); Aspartate Aminotrans (AST/SGOT 23.0 U/L (12-37); Bilirubin, Total 1.1 mg/dL (0.1-1.0); Blood Urea Nitrogen 16.0 mg/dL (8-24); CO2, Blood 30.0 mmol/L (21-32); Calcium, Blood 8.7 mg/dL (8.5-10.1); Chloride, Blood 108.0 mmol/L (98-108); Creatinine, Blood 0.71 mg/dL (0.40-1.00); Globulin, Blood 4.5 g/dL (2.2-4.0); Glucose, Blood 107.0 mg/dL (70-99); Potassium, Blood 3.7 mmol/L (3.5-5.5); Sodium, Blood 143.0 mmol/L (136-145); Total Protein, Blood 7.3 g/dL (6.4-8.2)
[2025-04-19] MEDS ORDERED: NS 1,000 ML IV SCH ×2 (13:00)
[2025-04-19 14:56] LABS: Source, Urine Foley catheter
[2025-04-19 14:59] LABS: Bilirubin, Urine Neg (Neg); Color, Urine Amber (P-Yellow); Glucose Qualitative, Urine Neg (Neg); Ketones, Urine 3+ (Neg); Leukocyte Esterase, Urine 2+ (Neg); Protein, Urine 3+ (Neg); Specific Gravity, Urine 1.025 (1.003-1.022); Urobilinogen, Urine 1+ (Normal)
[2025-04-19] MEDS ORDERED: Magnesium Sulf 2 GM/Water 50ML 50 ML IV ONE (15:00)
[2025-04-19] MEDS ORDERED: Ondansetron HCl 2 MG / ML 2ML Vial IV ONE (15:00)
[2025-04-19] MEDS ORDERED: PERM5TC TOP ×2 (15:05→19:08)
[2025-04-19] MEDS ORDERED: Ketorolac Tromethamine 30mg Vial IV ONE (15:05)
[2025-04-19 15:08] LABS: Red Blood Cells, Urine TNTC /hpf (0-2)
[2025-04-19 17:34] LABS: Influenza A, PCR NEGATIVE (NEGATIVE); Influenza B, PCR NEGATIVE (NEGATIVE); Resp Syncytial Virus, PCR NEGATIVE (NEGATIVE); SARS-Cov-2 (COVID-19) PCR, MMC NEGATIVE (NEGATIVE)
[2025-04-19] MEDS ORDERED: AMOCLA875 PO (17:37)
[2025-04-19 18:30] VITALS: BP 119/62
[2025-04-19] MEDS ORDERED: AUGMENTIN250 MG/5 M PO (19:08)
== END 2025-04-19 19:25 | disposition home or self-care (01) ==
LOC: ER 09:21
PROVIDERS: Emergency Medicine; Student in an Organized Health Care Education/Training Program
DX: E86.0 Dehydration (principal); B86 Scabies; G30.9 Alzheimer's disease, unspecified; F02.80 Dementia in other diseases classified elsewhere, unspecified severity, without behavioral disturbance, psychotic disturbance, mood disturbance, and anxiety; I10 Essential (primary) hypertension; I25.10 Atherosclerotic heart disease of native coronary artery without angina pectoris; I25.2 Old myocardial infarction; K21.9 Gastro-esophageal reflux disease without esophagitis; F32.9 Major depressive disorder, single episode, unspecified; Z88.5 Allergy status to narcotic agent; Z88.8 Allergy status to other drugs, medicaments and biological substances; Z79.899 Other long term (current) drug therapy; Z87.891 Personal history of nicotine dependence
CPT/HCPCS: 36415; 71045; 71046; 80053; 81001; 84484; 85025; 87637; A9270; J1885; J2405; J3475; J7030

== ENCOUNTER 2025-06-19 17:12 | Emergency (ER) | payer MEDICARE, OTHER ==
[~2025-06-19] VITALS: Ht 162.6 cm; Wt 45.4 kg
[~2025-06-19 17:12] MED LIST changes: +AMOCLA875 PO; +AUGMENTIN250 MG/5 M PO; +PERM5TC TOP
[2025-06-19] MEDS ORDERED: Ondansetron 4 MG SoluTab SL ONE (17:35)
[2025-06-19] MEDS ORDERED: Lidocaine/Tetracaine/Epinephr 3 ML GEL SYRINGE TOP ONE (20:10)
[2025-06-19 22:00] VITALS: BP 114/56
== END 2025-06-19 22:30 | disposition home or self-care (01) ==
LOC: ER 17:12
DX: S01.81XA Laceration without foreign body of other part of head, initial encounter (principal); W05.0XXA Fall from non-moving wheelchair, initial encounter
CPT/HCPCS: 12013; 70450; 72125; 99284-25; A9270

== ENCOUNTER 2025-07-11 09:20 | Inpatient (IN) | payer MEDICARE, OTHER ==
[~2025-07-11] VITALS: Ht 162.6 cm; Wt 48.0 kg
[2025-07-11] VITALS (24 sets, daily range): BP systolic 120–137; BP diastolic 46–65
[2025-07-11 09:39] LABS: BASOPHILS ABSOLUTE AUTO 0.05 K/mm3 (0.00-0.23); BASOPHILS PERCENT AUTO 0 % (0-2); EOSINOPHILS ABSOLUTE AUTO 0.00 K/mm3 (0.00-0.68); EOSINOPHILS PERCENT AUTO 0 % (0-6); Hematocrit 48.3 % (33.0-51.0); Hemoglobin 15.6 g/dL (11.5-16.0); IMMATURE GRAN ABSOLUTE AUTO 0.27 K/mm3 (0.00-0.10); IMMATURE GRAN PERCENT AUTO 1 % (0-1); LYMPHOCYTES ABSOLUTE AUTO 0.42 K/mm3 (0.84-5.20); LYMPHOCYTES PERCENT AUTO 2 % (21-46); MONOCYTES ABSOLUTE AUTO 1.56 K/mm3 (0.16-1.47); MONOCYTES PERCENT AUTO 5 % (4-13); Mean Corpuscular HGB Conc 32.3 g/dL (31.5-36.5); Mean Corpuscular Volume 98 fL (80-100); NEUTROPHILS ABSOLUTE AUTO 26.65 K/mm3 (1.96-9.15); NEUTROPHILS PERCENT AUTO 92 % (41-73); NRBC ABSOLUTE 0.00 K/mm3 (0.00-0.02); NRBC Auto 0.0 /100 WBC (0.0-0.2); Platelet Count 196 K/mm3 (150-400); RDW Coefficient Variation 15.1 % (11.7-14.2); RDW Standard Deviation 54.4 fL (35.1-46.3)
[2025-07-11] MEDS ORDERED: Piperacillin/Tazobactam Sod 4.5 GM in NS 100 ML IV ONE (10:00)
[2025-07-11 10:03] LABS: BASOPHILS ABSOLUTE MAN 0.00 K/mm3 (0.00-0.23); BASOPHILS PERCENT MAN 0 % (0-2); EOSINOPHILS ABSOLUTE MAN 0.00 K/mm3 (0.00-0.68); EOSINOPHILS PERCENT MAN 0 % (0-6); LYMPHOCYTES ABSOLUTE MAN 1.44 K/mm3 (0.84-5.20); LYMPHOCYTES PERCENT MAN 5 % (21-46); MONOCYTES ABSOLUTE MAN 0.28 K/mm3 (0.16-1.47); MONOCYTES PERCENT MAN 1 % (4-13); NEUTROPHILS ABSOLUTE MAN 27.21 K/mm3 (1.96-9.15); SEG NEUTROPHILS PERCENT MAN 94 % (41-73)
[2025-07-11 10:06] LABS: Alanine Aminotransfer (ALT/SGP 56.0 U/L (12-78); Albumin, Blood 2.6 g/dL (3.4-5.0); Albumin/Globulin Ratio 0.6 (0.8-1.8); Anion Gap 18.0 mmol/L (3-11); Aspartate Aminotrans (AST/SGOT 74.0 U/L (12-37); Bilirubin, Total 1.8 mg/dL (0.1-1.0); Blood Urea Nitrogen 33.0 mg/dL (8-24); CO2, Blood 18.0 mmol/L (21-32); Calcium, Blood 9.4 mg/dL (8.5-10.1); Chloride, Blood 115.0 mmol/L (98-108); Creatinine, Blood 1.56 mg/dL (0.40-1.00); Globulin, Blood 4.7 g/dL (2.2-4.0); Glucose, Blood 341.0 mg/dL (70-99); Magnesium, Blood 2.0 mg/dL (1.6-2.4); Potassium, Blood 3.9 mmol/L (3.5-5.5); Sodium, Blood 147.0 mmol/L (136-145); Total Protein, Blood 7.3 g/dL (6.4-8.2)
[2025-07-11 10:18] LABS: Source, Urine Straight Cath
[2025-07-11 10:22] LABS: Color, Urine Amber (P-Yellow); Glucose Qualitative, Urine Neg (Neg); Ketones, Urine 1+ (Neg); Leukocyte Esterase, Urine 3+ (Neg); Protein, Urine 4+ (Neg); Specific Gravity, Urine 1.025 (1.003-1.022); Urobilinogen, Urine 2+ (Normal)
[2025-07-11 10:36] LABS: Bilirubin, Urine 1+ (Neg)
[2025-07-11 10:40] LABS: pH Blood Venous 7.42 (7.34-7.37)
[2025-07-11 10:42] LABS: Red Blood Cells, Urine TNTC /hpf (0-2)
[2025-07-11 10:44] LABS: Influenza A, PCR NEGATIVE (NEGATIVE); Influenza B, PCR NEGATIVE (NEGATIVE); Resp Syncytial Virus, PCR NEGATIVE (NEGATIVE); SARS-Cov-2 (COVID-19) PCR, MMC NEGATIVE (NEGATIVE)
[2025-07-11 10:47] LABS: White Blood Cells, Urine TNTC /hpf (0-5)
[2025-07-11] MEDS ORDERED: MYLANTA MAXIMUM10 ML PO (11:16)
[2025-07-11] MEDS ORDERED: Norco 5-325 Ta1 EACH PO (11:17)
[2025-07-11] MEDS ORDERED: Ketoconazole15 GM TOP (11:17)
[2025-07-11] MEDS ORDERED: CENTRUM SILVER1 EAC2 PO (11:18)
[2025-07-11] MEDS ORDERED: LORA.5 PO (11:18)
[2025-07-11] MEDS ORDERED: NYSTOP15 GM TOP (11:18)
[2025-07-11] MEDS ORDERED: Vancomycin (Pharmacy Consult) IV PRN (11:40)
[2025-07-11] MEDS ORDERED: Ondansetron HCl 2 MG / ML 2ML Vial IV PRN (12:00)
[2025-07-11] MEDS ORDERED: Magnesium Hydroxide Conc 10 ML UDC PO PRN (12:00)
[2025-07-11] MEDS ORDERED: FLU VACC TS2025(65UP)/MF59C/PF 45 MCG/0.5 ML SYRINGE IM SCH (12:05)
[2025-07-11] MEDS ORDERED: Vancomycin (Pharmacy Consult) IV SCH (15:10)
--- NOTE | 2025-07-11 15:45 | NUR ---
ASSUMPTION OF CARE/TRANSFER REPORT RECEIVED FROM POLE INSPECTOR. PATIENT ARRIVED TO UNIT VIA GURNEY. TELE IN PLACE, BP STABLE, PATIENT TACHYCARDIC AND TACHYPNEIC. BILATERAL SUBMANDIBULAR SWELLING NOTED AND POTENTIAL PERIORBITAL EDEMA PRESENT PRIMARILY TO RIGHT EYE. INCREASED WORK OF BREATHING NOTED WITH POTENTIAL STRIDOR, PATIENT PLACED ON 2L VIA NC, SPO2 >90%. PUPILS ARE UNEQUAL, RESPONSIVE TO LIGHT BILATERALLY. EXTREMITIES ARE CONTRACTED AND PATIENT RESPONSIVE TO PAIN AND INTERMITTENTLY TO NAME. UNABLE TO CONSISTENTLY RESPOND TO COMMANDS. PROVIDER MADE AWARE OF PATIENT CONDITION, PROVIDER AT BEDSIDE, ORDERS RECEIVED. 1600 TRANSFER REPORT GIVEN TO HAZARDOUS WASTE TECHNICIAN. PATIENT LEFT UNIT VIA HOSPITAL BED. ALL PATIENT BELONGINGS PRESENT.
--- NOTE | 2025-07-11 15:49 | NUR ---
PALLIATIVE CARE VISIT: CONSULT RECEIVED FROM DR. MCKEON THIS MORNING AT 0930 REQUESTING TO TALK TO FAMILY ABOUT GOC BECAUSE PT WAS NON VERBAL. CALLED SON AT 1000 TO SEE IF HE WAS GOING TO BE COMING TO SEE HIS MOTHER IN THE HOSPITAL. PARTH STATED HE HAD NOT BEEN NOTIFIED SHE WAS SENT TO ER AND HE WAS OUT HUNTING. UPDATED HIM ON WHY SHE WAS SENT TO ER FROM [facility] PER NOTES. DISCUSSED POLST SENT WITH PT AND ON FILE. DISCUSSED RISKS VS BENEFITS OF CPR. SON STATES HE HAD DISCUSSION WITH HIS MOM LAST WEEK TO SEE IF SHE STILL WANTED TO "HAVE EVERYTHING DONE" AND SHE HAD TOLD HIM YES SO THIS IS WHAT HE WANTS TO CONTINUE WITH. PARTH STATES HE IS 50 MILES AWAY ON A HUNTING TRIP AND WONT BE ABLE TO COME IN UNTIL TONIGHT. MET WITH PT AT 1020. PT IS NON VERBAL. SHE DOES OPEN EYES TO VERBAL STIMULI BUT NO OTHER RESPONSES AT THIS TIME. PT IS FRAIL APPEARING, CONTRACTURED HANDS. HAS A HISTORY OF OBESITY BUT APPEARS VERY THIN. SPOKE TO DR. MCKEON ABOUT CONVERSATION WITH SON. HE STATES HE WILL CALL HIM ONCE TEST RESULTS ARE COMPLETED. CALLED SON PARTH TO GIVE UPDATE AND TO EXPECT CALL FROM DR. MCKEON. ALSO RE-ITERATED THE RISKS ASSOCIATED WITH CPR AND ADVISED HE IS DECISION MAKER AT THIS TIME BECAUSE HIS MOM IS NOT RESPONDING TO QUESTIONS. PARTH INFORMS HE IS MEDICAL POA. HE HAS 3 OTHER BROTHERS. CALLED [facility] REQUESTING THEM TO FAX POA PAPERWORK. THEY SAID IF PAPERWORK IS ON FILE THEY WOULD FAX. ACCORDING TO CARRY AT [facility], PARTH IS LISTED POA BUT THEY DO NOT ALWAYS HAVE POA PAPERWORK ON HAND. UPDATE 1600: NO POA DOCUMENT SENT AT THIS TIME.
[2025-07-11] MEDS ORDERED: Piperacillin/Tazobactam Sod 3.375 GM in NS 100 ML IV SCH (17:00)
[2025-07-11 17:03] LABS: Anion Gap 10.0 mmol/L (3-11); Blood Urea Nitrogen 31.0 mg/dL (8-24); CO2, Blood 25.0 mmol/L (21-32); Calcium, Blood 9.0 mg/dL (8.5-10.1); Chloride, Blood 118.0 mmol/L (98-108); Creatinine, Blood 1.2 mg/dL (0.40-1.00); Glucose, Blood 217.0 mg/dL (70-99); Potassium, Blood 3.1 mmol/L (3.5-5.5); Sodium, Blood 150.0 mmol/L (136-145)
[2025-07-11 18:00] LABS: Alanine Aminotransfer (ALT/SGP 73.0 U/L (12-78); Albumin, Blood 2.5 g/dL (3.4-5.0); Albumin/Globulin Ratio 0.7 (0.8-1.8); Anion Gap 7.0 mmol/L (3-11); Aspartate Aminotrans (AST/SGOT 94.0 U/L (12-37); Bilirubin, Total 1.5 mg/dL (0.1-1.0); Blood Urea Nitrogen 27.0 mg/dL (8-24); CO2, Blood 28.0 mmol/L (21-32); Calcium, Blood 8.8 mg/dL (8.5-10.1); Chloride, Blood 118.0 mmol/L (98-108); Creatinine, Blood 1.19 mg/dL (0.40-1.00); Globulin, Blood 3.7 g/dL (2.2-4.0); Glucose, Blood 204.0 mg/dL (70-99); Potassium, Blood 2.9 mmol/L (3.5-5.5); Sodium, Blood 150.0 mmol/L (136-145); Total Protein, Blood 6.2 g/dL (6.4-8.2)
[2025-07-11] MEDS ORDERED: Insulin Regular 100 UNIT/ML 10ML Vial SC SCH (18:00)
[2025-07-11] MEDS ORDERED: Piperacillin/Tazobactam Sod 2.25 GM in NS 50 ML IV SCH (18:00)
--- NOTE | 2025-07-11 18:16 | NUR ---
TRANSFER NOTE THIS RN RECIEVED REPORT FROM COPY OPERATORIRAM GAMING. PATIENT ARRIVED TO ICU AT APPROX 1735. PATIENT OPENS EYES SPONTANEOUSLY AND IS MOANING OUT WITH MOVEMENT AND WHEN TOUCHED. ALL FOUR LIMBS ARE CONTRACTURED. HR SINUS IN THE 90S. BP STABLE WITH MAPS >65. PATIENT ON 2L O2 VIA NC WITH SPO2 >95%. PATIENT HAS BILATERAL MANDIBULAR AND NECK SWELLING. SWELLING MARKED AT THIS TIME. TEMP RANDHAWA PATENT AND DRAINING DARK BROWN URINE TO GRAVITY. PG TO HOLDEN PATENT AND SALINE LOCKED. PATIENT HAS WOUND TO LEFT MIDDLE FINGER AND COCCYX. PATIENT HAD 5 STITCHES IN LEFT FOREHEAD THAT WE REMOVED. PHOTOS IN CHART. BED IN LOWEST POSITION. CALL LIGHT IN REACH.
[2025-07-11 23:17] LABS: Anion Gap 8.0 mmol/L (3-11); Blood Urea Nitrogen 23.0 mg/dL (8-24); CO2, Blood 27.0 mmol/L (21-32); Calcium, Blood 8.8 mg/dL (8.5-10.1); Chloride, Blood 123.0 mmol/L (98-108); Creatinine, Blood 0.89 mg/dL (0.40-1.00); Glucose, Blood 171.0 mg/dL (70-99); Potassium, Blood 3.5 mmol/L (3.5-5.5); Sodium, Blood 154.0 mmol/L (136-145)
[2025-07-12] VITALS (44 sets, daily range): BP systolic 119–151; BP diastolic 55–106
[2025-07-12 03:30] LABS: BASOPHILS ABSOLUTE AUTO 0.07 K/mm3 (0.00-0.23); BASOPHILS PERCENT AUTO 0 % (0-2); EOSINOPHILS ABSOLUTE AUTO 0.00 K/mm3 (0.00-0.68); EOSINOPHILS PERCENT AUTO 0 % (0-6); Hematocrit 36.6 % (33.0-51.0); Hemoglobin 12.1 g/dL (11.5-16.0); IMMATURE GRAN ABSOLUTE AUTO 0.25 K/mm3 (0.00-0.10); IMMATURE GRAN PERCENT AUTO 1 % (0-1); LYMPHOCYTES ABSOLUTE AUTO 1.19 K/mm3 (0.84-5.20); LYMPHOCYTES PERCENT AUTO 4 % (21-46); MONOCYTES ABSOLUTE AUTO 1.73 K/mm3 (0.16-1.47); MONOCYTES PERCENT AUTO 6 % (4-13); Mean Corpuscular HGB Conc 33.1 g/dL (31.5-36.5); Mean Corpuscular Volume 96 fL (80-100); NEUTROPHILS ABSOLUTE AUTO 27.20 K/mm3 (1.96-9.15); NEUTROPHILS PERCENT AUTO 89 % (41-73); NRBC ABSOLUTE 0.00 K/mm3 (0.00-0.02); NRBC Auto 0.0 /100 WBC (0.0-0.2); Platelet Count 143 K/mm3 (150-400); RDW Coefficient Variation 15.3 % (11.7-14.2); RDW Standard Deviation 54.7 fL (35.1-46.3)
[2025-07-12 03:52] LABS: Anion Gap 8 mmol/L (3-11); Blood Urea Nitrogen 20 mg/dL (8-24); CO2, Blood 26 mmol/L (21-32); Calcium, Blood 8.6 mg/dL (8.5-10.1); Chloride, Blood 123 mmol/L (98-108); Creatinine, Blood 0.77 mg/dL (0.40-1.00); Glucose, Blood 120 mg/dL (70-99); Potassium, Blood 3.0 mmol/L (3.5-5.5); Sodium, Blood 154 mmol/L (136-145); Vancomycin, Random 16.0 ug/mL
--- NOTE | 2025-07-12 05:41 | NUR ---
SHIFT SUMMARY PT HAS TOLERATED SHIFT WELL WITH NO SIGNIFICANT EVENTS OVERNIGHT. PTS TEMPERATURE HAS GONE UP TO 100.2 BUT HAS OTHRWISE REMAINED IN THE 90s FOR MAJORITY OF SHIFT. PT HAS NOT BEEN ABLE TO COMMUNICATE VERBALLY TO THIS RN AND HAS ONLY BEEN ABLE TO MOAN WHEN WOKEN UP OR WHEN POSITION HAS BEEN CHANGED IN BED. PT HAS HAD APPROXIMATELY 700ML URINE OUTPUT OVERNIGHT AND NO BOWEL MOVEMENTS. CALL LIGHT WITHIN REACH. WILL CONTINUE TO MONITOR UNTIL REPORT PASSED TO DAY SHIFT TEAM.
[2025-07-12] MEDS ORDERED: Ketorolac Tromethamine 15mg Vial IV PRN (08:15)
[2025-07-12] MEDS ORDERED: Enoxaparin 30 MG/0.3 ML SYR SC SCH (09:00)
--- NOTE | 2025-07-12 10:46 | NUR ---
ASSUMED CARE PATIENT IS RESTING QUIETLY WITH EYES CLOSED DURING BSSR. SHE IS CURRENTLY ON 2L OF O2 VIA NC. SPO2 >96%. RESPIRATIONS ARE EVEN AND UNLABORED. PT BP IS 140/90S, MAP >65. HR IS IRREGULAR AFIB ON MONITOR. PATIENT HAS NOT HAD A BM PER NOC RN. CONCERNED FOR CONSTIPATION. SHE IS UNABLE TO TAKE ORAL MEDS AT THIS TIME AND IS UNABLE TO BE FULLY ROUSED. SHE MOANS WHEN PHYSICALLY TOUCHED OR REPOSITIONED. PT HAS RANDHAWA CATHETER WITH TEMP PROBE DRAINING TO GRAVITY. SHE HAS CLEAR YELLOW URINE WITH NO SEDIMENT VISIBLE. TEMP IS 100.3 DURING BSSR. BED IS IN LOWEST POSITION, CALL LIGHT IN REACH.
[2025-07-12] MEDS ORDERED: PARO20 PO (13:16)
[2025-07-12] MEDS ORDERED: POLYMYXIN B-TMP10 ML BOTHEYES (13:17)
[2025-07-12] MEDS ORDERED: MUPIROCIN1 G1 TOP (13:18)
[2025-07-12] MEDS ORDERED: IMODIUM A-D2 M1 PO (13:19)
[2025-07-12] MEDS ORDERED: LOPE2C PO (13:20)
--- NOTE | 2025-07-12 16:29 | NUR ---
CASE CONFERENCE: SPOKE WITH PT'S SON PARTH BY PHONE. HE REPORTS HE IS CURRENTLY FISHING FOR SEVERAL DAYS, BUT COMING HOME IN THE EVENINGS, AND STOPPING TO VISIT THE PATIENT THEN. WE HAD A LONG CONVERSATION ABOUT THE PATIENT'S HEALTH, ESPECIALLY RELATED TO HER ADVANCED DEMENTIA. HE PLANS TO SPEAK TO HIS SIBLINGS ANTHONY ABOUT GOALS OF CARE AND WILL REVISIT TOMORROW.
[2025-07-12 16:33] LABS: Anion Gap 7.0 mmol/L (3-11); Blood Urea Nitrogen 15.0 mg/dL (8-24); CO2, Blood 28.0 mmol/L (21-32); Calcium, Blood 8.3 mg/dL (8.5-10.1); Chloride, Blood 116.0 mmol/L (98-108); Creatinine, Blood 0.63 mg/dL (0.40-1.00); Glucose, Blood 202.0 mg/dL (70-99); Potassium, Blood 2.9 mmol/L (3.5-5.5); Sodium, Blood 148.0 mmol/L (136-145)
[2025-07-12] MEDS ORDERED: Potassium Chl 20MEQ/Water100ML 100 ML IV SCH (17:00)
--- NOTE | 2025-07-12 18:36 | NUR ---
SHIFT SUMMARY PT IS CURRENTLY RESTING WITH EYES CLOSED. SHE HAS REMAINED STABLE THIS SHIFT WITH NO SIGNIFICANT EVENTS. HER TMAX WAS 100.8, BUT OTHERWISE STAYS BETWEEN 100.0-100.5. SHE HAS NOT BEEN ABLE TO COMMUNICATE VERBALLY AND MOANS IN PAIN WHEN REPOSITIONED. SHE SAID "HELP" AND "YES" ONCE WHEN EXPRESSING DISCOMFORT DURING REPOSITIONING. HER SYSTOLIC BP HAS REMAINED >130. MAP >65. HR IN 80-100S WITH AFIB AND ABBERANT PACS ON MONITOR. SPO2 IS >96% ON ROOM AIR. SHE HAS HAD AN OCCASIONAL COUGH WITH COPIOUS OLVERA YELLOW SECRETIONS THAT SHE IS UNABLE TO CLEAR FROM HER OROPHARYNX WITHOUT SUCTIONING. OTHERWISE SHE HAD ONE LOOSE BOWEL MOVEMENT TODAY AND CLEAR YELLOW URINE OUTPUT FROM HER RANDHAWA THAT IS DRAINING TO GRAVITY. HER SKIN IS FRAIL WITH MULTIPLE CUTS AND BRUISES. PICTURES IN CHART. UPDATE CODE STATUS CHANGE FROM FULL CODE TO DNR AFTER CONVERSATION WITH HER SON AT 1815 TODAY. HE HAD A FAMILY CONFERENCE WITH ALL OF HIS SIBLINGS AND THEY AGREED TO CHANGE HER CODE TO DNR AND DISCUSS STARTING HOSPICE TOMORROW. PURPLE WRISTBAND PLACED ON RIGHT WRIST AND OUTSIDE DOOR. PATIENT CALL LIGHT IS IN REACH. BED IS IN LOWEST POSITION.
[2025-07-13] VITALS (14 sets, daily range): BP systolic 96–155; BP diastolic 51–105
[2025-07-13 01:30] LABS: Anion Gap 8.0 mmol/L (3-11); Blood Urea Nitrogen 11.0 mg/dL (8-24); CO2, Blood 28.0 mmol/L (21-32); Calcium, Blood 7.9 mg/dL (8.5-10.1); Chloride, Blood 106.0 mmol/L (98-108); Creatinine, Blood 0.55 mg/dL (0.40-1.00); Glucose, Blood 292.0 mg/dL (70-99); Potassium, Blood 3.6 mmol/L (3.5-5.5)
[2025-07-13 01:31] LABS: Sodium, Blood 138.0 mmol/L (136-145)
[2025-07-13 04:13] LABS: BASOPHILS ABSOLUTE AUTO 0.08 K/mm3 (0.00-0.23); BASOPHILS PERCENT AUTO 0 % (0-2); EOSINOPHILS ABSOLUTE AUTO 0.00 K/mm3 (0.00-0.68); EOSINOPHILS PERCENT AUTO 0 % (0-6); Hematocrit 39.2 % (33.0-51.0); Hemoglobin 12.8 g/dL (11.5-16.0); IMMATURE GRAN ABSOLUTE AUTO 0.27 K/mm3 (0.00-0.10); IMMATURE GRAN PERCENT AUTO 1 % (0-1); LYMPHOCYTES ABSOLUTE AUTO 2.67 K/mm3 (0.84-5.20); LYMPHOCYTES PERCENT AUTO 10 % (21-46); MONOCYTES ABSOLUTE AUTO 1.26 K/mm3 (0.16-1.47); MONOCYTES PERCENT AUTO 5 % (4-13); Mean Corpuscular HGB Conc 32.7 g/dL (31.5-36.5); Mean Corpuscular Volume 97 fL (80-100); NEUTROPHILS ABSOLUTE AUTO 23.49 K/mm3 (1.96-9.15); NEUTROPHILS PERCENT AUTO 85 % (41-73); NRBC ABSOLUTE 0.04 K/mm3 (0.00-0.02); NRBC Auto 0.1 /100 WBC (0.0-0.2); Platelet Count 142 K/mm3 (150-400); RDW Coefficient Variation 14.9 % (11.7-14.2); RDW Standard Deviation 54.2 fL (35.1-46.3)
[2025-07-13] MEDS ORDERED: Amiodarone HCl 50 MG / ML 3 ML Amp IV ONE (04:15)
[2025-07-13] MEDS ORDERED: Amiodarone HCl 150 MG in NS 100 ML IV ONE (04:25)
--- NOTE | 2025-07-13 04:26 | NUR ---
PT UPDATE: IT WAS NOTED THAT THE PT HAD GONE BACK INTO AFIB. SHE WAS STARTING TO HAVE PERIODS OF TACHYCARDIA UP TO 135 BUT NOT SUSTAINED. I ADMINISTERED MEDICATION FOR PAIN, REPOSITIONED THE PATIENT AND SUCTIONED HER MOUTH. SHE SUDDENLY BECAME TACHYCARDIC WITH AT LEAST ONE RUN OF VTACH AND SUSTAINED AN AFIB WITH RVR. PT WAS ACUTELY DIAPHORETIC AND TACHYPNEIC. OXYGEN WAS APPLIED AT 4LPM NC. ECG WAS OBTAINED, LABS SENT AND DR AGUAYO WAS CONTACTED WITH THE ORDER OF AMIODARONE BOLUS. PT REMAINS IN AFIB WITH A NEW QRS BUT AT A NORMAL RATE. SHE IS NO LONGER DIAPHORETIC AND APPEARS MORE RELAXED. RESPIRATORY RATE HAS ALSO IMPROVED.
[2025-07-13 04:50] LABS: Magnesium, Blood 1.5 mg/dL (1.6-2.4)
[2025-07-13 04:56] LABS: Alanine Aminotransfer (ALT/SGP 140.0 U/L (12-78); Albumin, Blood 2.2 g/dL (3.4-5.0); Albumin/Globulin Ratio 0.5 (0.8-1.8); Anion Gap 10.0 mmol/L (3-11); Aspartate Aminotrans (AST/SGOT 110.0 U/L (12-37); Bilirubin, Total 1.3 mg/dL (0.1-1.0); Blood Urea Nitrogen 10.0 mg/dL (8-24); CO2, Blood 27.0 mmol/L (21-32); Calcium, Blood 8.4 mg/dL (8.5-10.1); Chloride, Blood 106.0 mmol/L (98-108); Creatinine, Blood 0.55 mg/dL (0.40-1.00); Globulin, Blood 4.1 g/dL (2.2-4.0); Glucose, Blood 150.0 mg/dL (70-99); Potassium, Blood 3.6 mmol/L (3.5-5.5); Sodium, Blood 139.0 mmol/L (136-145); Total Protein, Blood 6.3 g/dL (6.4-8.2)
[2025-07-13 04:57] LABS: Phosphorus, Blood 0.9 mg/dL (2.5-4.9)
[2025-07-13] MEDS ORDERED: Potassium Phosphate Dibasic 30 MM in Dextrose 5% 500 ML IV ONE (05:05)
--- NOTE | 2025-07-13 07:10 | NUR ---
START SHIFT TOA- TOA RECEIVED FROM NIGHT RN AT BEDSIDE.PATIENT IS NOT AROUSABLE,GCS-6,RESPOND TO PAIN STIMULI,DOES NOT OPEN EYES,ON 4L NC,O2SAT ABOVE 90,MAP >65,HR- 80s-90s,RANDHAWA IN SITU.BED AT LOWEST POSITION.
[2025-07-13] MEDS ORDERED: Mag Sulfate 1 GM/D5% 100ML 100 ML IV STA (07:44)
--- NOTE | 2025-07-13 12:22 | NUR ---
EVENT- PATIENT DESATURATED TO 77% GLAZIER APPRENTICE DID PUT PATIENT ON HIGH FLOW NC,OXY MASK BUT DID NOT IMPROVE,THEN SWITCHED TO NON REBREATHER,PATIENT O2 SAT IMPROVED TO 93%.MD NOTIFIED AND @ BEDSIDE AND CHARGE NURSE NOTIFIED.MD IS GOING TO SPEAK TO SON REGARDING NEXT STEPS.PULSE OXYMETER SWITCHED TO LEFT HAND FINGER.
--- NOTE | 2025-07-13 13:30 | NUR ---
RCV'D CALL FROM TAKER OFF WITH REPORT OF PT'S MEDICALLY FRAGILE CONDITION CONTINUING TO DECLINE DESPITE AGRESSIVE TX. THIS PC RN LEFT MESSAGE VIA VM X3 FOR PT'S SON, PARTH TO CALL BACK TIFFANY AND PT'S CONDITION IN NOT IMPROVING. AFTER REACHING PARTH BY PHONE THIS AFTERNOON, THERAPUTIC LISTENING PROVIDED. GENTLE EDUCATION RE: MEDICALLY STATE PT IS IN. LITTLE TO NO IMPROVEMENT IN THE LAST COUPLE OF DAYS. SON PARTH IS AGREEABLE TO STARTING ON COMFORT/HOSPICE IF THE PROVIDER THINKS IT'S THE RIGHT THING TO DO. PARTH WILL BE CALLING HIS BROTHERS AND THEY WILL BE IN THIS AFTERNOON TO SEE PT. REVIEWED WITH THE CONVERSATION AND OUTCOME WITH PT'S SON. PROVIDER IS IN AGREEMENT TO START ON COMFORT MEASURES, "ONCE THE FAMILY IS HERE". ICU TAKER OFF NOTIFIED TO CALL PROVIDER WHEN FAMILY ARRIVES FOR NEW ORDERS. PC TO REMAIN AVAILABLE NEEDED.
--- NOTE | 2025-07-13 14:30 | NUR ---
SPiritual Care Visit. Pt. is somnolent and has been so for much of the day. Based on the Pts. identification as a woman of gerald, prayer is made on her behalf at bedside. Will remain available to the Pt. and any family who may arrive.
[2025-07-13] MEDS ORDERED: FentaNYL Citrate 50 MCG/ML 2 ML Injection IV PRN (15:55)
--- NOTE | 2025-07-13 16:04 | NUR ---
SHIFT SUMMARY- SON @ BEDSIDE,NOTIFIED MD GALAN. CAME AND UPDATED SON @ BEDSIDE.COMFORT CARE ORDERS STARTED.PATIENT WEANED OFF TO HIGH FLOW NC 10L FROM NON REBREATHER.PATIENT IS COMFORTABLE ,NO WOB NOTICED AT THIS TIME,MAP ABOVE 65 AND HR -80-90s.COMFORT MEASURES ORDERS IN PLACE.
--- NOTE | 2025-07-13 17:42 | NUR ---
SHIFT SUMMARY- PATIENT GCS-7,REPONSE TO PAIN STIMULI ONLY,ON HIGH FLOW NC 7L AT THIS TIME, COMFORTABLE,NO WOB NOTICED,RANDHAWA IN SITU,SON STAYED @ BEDSIDE SINCE COMFORT CARE MEASURES ARE IN PLACE,MAP ABOVE 65,HR- 80-90s.BED IN LOWEST POSITION,SUCTION @ BEDSIDE.
--- NOTE | 2025-07-14 02:02 | NUR ---
NOTE: SON PRESENT IN ROOM WITH PATIENT AT THIS TIME. PATIENT RESTING SOUNDLY. O2 ADJUSTED TO 4L INSTEAD OF 7L HIGHFLOW. PATIENT IS NOTED TO NOT BE GRIMACING. S1 S2 HEARD ON ASCULTATION. LUNGS DIMINISHED WITH COARSE CRACKLES IN BASES. WILL CONTINUE TO MONITOR.
[2025-07-14] MEDS ORDERED: Morphine Sulfate 20 MG/1ML 1 ML Oral Syringe SL PRN (05:45)
--- NOTE | 2025-07-14 06:21 | NUR ---
SHIFT SUMMARY: PATIENT SLEPT SOUNDLY THROUGHOUT THIS SHIFT. PATIENT MEDICATED FOR PAIN DURING SHIFT, SEE EMAR FOR DETAILS. PATIENT NOTED TO HAVE BLACK COLORED FOUL SMELLING LIQUID STOOL. PATIENT'S CURRENTLY ON 4L 02 VIA ID. PLAN TO CONTINUE COMFORT MEASURES AT THIS TIME. FAMILY AT BEDSIDE.
--- NOTE | 2025-07-14 09:05 | NUR ---
Pt laying in bed son was in room, pt does not have any s/s of distress, she opens her eyes and makes eye contact, but not verbal, lungs are clear dim in upper spencer, course in bases, resp even and unlabored, no cough noted at this time, on 4 liters 02 via n/c, hr irr, no edema noted, ppp faint, cap refill<3 sec vs stable, afebrile, btx4, abd flat soft nontender, morris cath in place draining yellow urine, briefs in place for stool, skin has mepilex to left leg, turn q2, cielo sluggish, call light in reach.
--- NOTE | 2025-07-14 14:23 | NUR ---
no change in pt condition, medicate prior to turn and change works well for her, family in room most of the day. call light in reach.
--- NOTE | 2025-07-14 14:56 | NUR ---
ASSUMED CARE OF PATIENT. PATIENT ALERT, FAMILY AT BEDSIDE, ALONG WITH PALLATIVE CARE.
[2025-07-14] MEDS ORDERED: Trimethoprim/Sulfamethoxazole SS Tab PO SCH (16:00)
[2025-07-15] MEDS ORDERED: Atropine Sulfate 1% Opth Soln 2ML BTL SL PRN (01:05)
[2025-07-15] MEDS ORDERED: Morphine Sulfate 20 MG/1ML 1 ML Oral Syringe SL PRN (01:20)
--- NOTE | 2025-07-15 05:50 | NUR ---
Shift Summary Pt on comfort care. She has been awake for much of the shift but unresponsive to verbal stimuli. She had an intense fixed stare with a furrowed brow at the start of the shift. I gave Roxanol and ativan once and she slept for a small amount of time. Later her lung sounds were very wet and she was awake again making no attempt to clear secretions. Her brow was furrowed with the same intense stare. I called the MD who ordered atropine for secretions and increased the dose+frequency of Roxanol. Atropine helped dry her breath sounds and the Roxanol reduced her signs of pain. She is currently sleeping comfortably. She has a Moore catheter in place draining small amounts of leandro urine. Pt is NPO d/t being an aspiration risk.
--- NOTE | 2025-07-15 09:56 | NUR ---
TOD 1634- CALLED DR KENNEY, CONFIRMED TOD WITH IRAM CELESTIN. CALLED DAUGHTER AND LEFT A MESSAGE REQUESTING A CALL BACK. CALLED GRANDSON SANDRA AND SPOKE ISAMAR. HE IS AWARE AND WILL BE IN SHORTLY.
--- NOTE | 2025-07-15 11:00 | NUR ---
"Spiritual Care | Post EOL Family support Pt. had passed approximately 0930. When family arrived this autocad was called to bedside to be with family. Pts. son and grandson are at bedside. Pastoral care and condolence is given. Shared with the family that this autocad had visited the Pt. when she was in ICU. Son displays evidence of appropriate grief. Prayed for the Pt. and blessed the family. Confirmed the families decision to use [facility] in [place]. EOL Education is given. Pts. family verbalized gratitude for the spiritual care support."
== END 2025-07-15 09:40 | DRG 871 ==
LOC: ER 09:20 → PCU 14:52 → ICUE 14:52 → MEDS 14:52 → PCU 15:17 → ICUE 17:20 → MEDS 07-13 18:53 → ENPENDDIS 07-15 09:40 → MEDS 07-15 09:40
PROVIDERS: Emergency Medicine; Student in an Organized Health Care Education/Training Program; ADMIT Student in an Organized Health Care Education/Training Program
PROC: 3E03329 Introduction of Other Anti-infective into Peripheral Vein, Percutaneous Approach (ICD-10-PCS; 2025-07-11)
PROC: 5A0935A Assistance with Respiratory Ventilation, Less than 24 Consecutive Hours, High Flow/Velocity Cannula (ICD-10-PCS; 2025-07-11)
PROC: 0DH67UZ Insertion of Feeding Device into Stomach, Via Natural or Artificial Opening (ICD-10-PCS; principal; 2025-07-12)
DX: A41.02 Sepsis due to Methicillin resistant Staphylococcus aureus (principal); G92.8 Other toxic encephalopathy; J96.01 Acute respiratory failure with hypoxia; E87.21 Acute metabolic acidosis; N17.9 Acute kidney failure, unspecified; E87.0 Hyperosmolality and hypernatremia; E87.29 Other acidosis; R65.20 Severe sepsis without septic shock; Z51.5 Encounter for palliative care; Z66 Do not resuscitate; G30.9 Alzheimer's disease, unspecified; F02.80 Dementia in other diseases classified elsewhere, unspecified severity, without behavioral disturbance, psychotic disturbance, mood disturbance, and anxiety; M19.90 Unspecified osteoarthritis, unspecified site; I10 Essential (primary) hypertension; I25.10 Atherosclerotic heart disease of native coronary artery without angina pectoris; E87.6 Hypokalemia; E83.39 Other disorders of phosphorus metabolism; E83.42 Hypomagnesemia; I25.2 Old myocardial infarction; K21.9 Gastro-esophageal reflux disease without esophagitis; G47.00 Insomnia, unspecified; F32.9 Major depressive disorder, single episode, unspecified; G43.709 Chronic migraine without aura, not intractable, without status migrainosus; E86.0 Dehydration; N20.0 Calculus of kidney; K11.20 Sialoadenitis, unspecified; R73.9 Hyperglycemia, unspecified; Z91.81 History of falling; Z98.890 Other specified postprocedural states; Z87.891 Personal history of nicotine dependence; Z79.899 Other long term (current) drug therapy; Z88.5 Allergy status to narcotic agent; Z88.8 Allergy status to other drugs, medicaments and biological substances
CPT/HCPCS: 36415; 51702; 70450; 70491; 71045; 74177; 76705; 80048; 80053; 80202; 81001; 82550; 82803; 82947; 83036; 83605; 83735; 84100; 85025; 87040; 87077; 87086; 87147; 87186; 87637; 93005; 93010; 96361-59; 96365-59; 99285-25; A9270; C8929; J0282; J1650; J1815; J1885; J2543; J3373; J3475; J3480; J7050; J7060; J7070; J7120; Q9957; Q9967